=== PATIENT | male | born 1935 | race Caucasian/White ===

== ENCOUNTER 2018-02-19 11:18 | Outpatient (CLI) | payer MEDICARE ==
--- NOTE | 2018-02-19 13:14 | RAD ---
PA AND LATEARL CHEST: History: Paroxysymal atrial fibrillation FINDINGS: The heart size is normal. There is elevation of the right hemidiaphragm. No lobar consolidation, pneu mothoraces, gerardo pulmonary edema or pleural effusions are seen. There are mild degenerative changes of the spine. IMPRESSION: No radiographic evidence of acute cardiopulmonary process. POS: [facility]
== END 2018-02-19 11:19 | disposition home or self-care (01) ==
LOC: BICRAD 11:18
PROVIDERS: ATTEND Internal Medicine Cardiovascular Disease
DX: I48.0 Paroxysmal atrial fibrillation (principal)
CPT/HCPCS: 71046

== ENCOUNTER 2018-02-19 11:25 | Outpatient (CLI) | payer MEDICARE ==
--- NOTE | 2018-02-19 13:44 | RAD ---
CERVICAL SPINE 4 VIEWS: Date: 02/19/18 HISTORY: Spondylosis without myelopathy or radiculopathy, cervical. FINDINGS: There are postop changes of anterior spinal fusion with plate and screws at C5-6 level in good positi on and alignment. Degenerative changes are present. No fracture or subluxation is seen. No change in alignment is noted on flexion or extension. POS: [facility]
--- NOTE | 2018-02-19 13:44 | RAD ---
FOUR VIEWS LUMBAR SPINE: Date: 02-19-18 History: Lumbar spondylosis with myelopathy or radicular symptoms. Comparison: None available. FINDINGS: There are five non-rib bearing lumbar type vertebral bodies. Laminectomy defects are seen posteriorly extending from the level of the L3 vertebral body to the lumbosacral junction. Scattered osteophytes are present within the lumbar spine. There is slight retrolisthesis of L3 on L4 with similar degree of retrolisthesis on flexion and extension views. No additional level of subluxation is present. Ther e is narrowing at the intervertebral disc spaces at the lower lumbar spine. Vertebral body heights ar e within normal limits and there is no fracture. There is mild right convex curvature of the lumbar s pine. Vascular calcification is seen in the abdominal aorta. IMPRESSION: 1. Degenerative and post-operative changes of the lumbar spine with right convex scoliosis. 2. Slight retrolisthesis of L3 on L4. POS: [facility]
== END 2018-02-19 11:26 | disposition home or self-care (01) ==
LOC: BICRAD 11:25
PROVIDERS: ATTEND Nurse Practitioner Family
DX: M47.816 Spondylosis without myelopathy or radiculopathy, lumbar region (principal); M47.812 Spondylosis without myelopathy or radiculopathy, cervical region; M47.892 Other spondylosis, cervical region; M47.896 Other spondylosis, lumbar region; M41.9 Scoliosis, unspecified; M43.16 Spondylolisthesis, lumbar region; Z98.890 Other specified postprocedural states
CPT/HCPCS: 71046; 72050; 72110

== ENCOUNTER 2018-03-11 11:17 | Day surgery (SDC) | payer MEDICARE ==
[2018-03-11] MEDS ORDERED: PROPOFOL 200 MG/20 ML VIAL ONE (17:16)
--- NOTE | 2018-03-11 18:04 | MRI ---
MRI CERVICAL SPINE WITHOUT CONTRAST: Date: 03/11/18 HISTORY: M53.02, cervical spondylosis. COMPARISON: Cervical spine radiographs dated 02/19/18. FINDINGS: The cerebellar tonsils terminate at the level of the foramen magnum. Background marrow signal is norm al. There is some mild susceptibility artifact at the ACDF hardware at C4-5. No marrow infiltrative process. Signal of the cord is normal. Levels are as follows: C2-3: Some low grade disc desiccation. Moderate left and mild right-sided facet arthropathy. There i s a small right paracentral posterior disc osteophyte complex. Mild right and no significant left-radha ed neural foraminal narrowing. C3-4: Mild uncinate process hypertrophy, slightly worse on the right than the left. Mild to moderate facet arthropathy bilaterally. Uncinate process hypertrophy on the right with moderate right-sided n eural foraminal narrowing. C4-5: Mild disc desiccation. There is a right subforaminal and extraforaminal posterior disc osteoph yte complex. Mild facet arthropathy. There is effacement of the ventral CSF space of the spinal canal measuring approximately 1.0 cm. There is abutment of the ventral cord. Moderate to severe right-side d neural foraminal narrowing with abutment of the exiting nerve root. Mild left side neural foraminal narrowing. C5-6: Prior diskectomy changes. There is a right paracentral and subforaminal posterior osteophyte c ausing moderate to severe right-sided neural foraminal narrowing. Mild left-sided uncinate process hy pertrophy. No significant spinal canal narrowing. C6-7: There is central, left paracentral, and left subforaminal posterior disc osteophyte complex. T his causes moderate to severe left-sided neural foraminal narrowing. Mild uncinate process hypertroph y on the right causing mild right-sided neural foraminal narrowing. There is abutment of the left exi ting nerve root. IMPRESSION: Multilevel spondylosis, worse at C4-5, C5-6, and C6-7. At C5-6, there appears to be a large right sub foraminal and lateral recess osteophyte. POS: [facility]
--- NOTE | 2018-03-11 18:38 | MRI ---
MRI LUMBAR SPINE WITHOUT CONTRAST: Date: 03/11/18 HISTORY: M54.16, lumbar radicular pain. Buttock pain extending to legs bilaterally. COMPARISON: None. FINDINGS: Multiple T2 hyperintense foci are present within both kidneys. The visualized portion of the aorta is not dilated. No retroperitoneal adenopathy. No marrow infiltrative process. Laminectomy changes L3-L5. Levels are as follows: L1-2: Low grade circumferential disc bulge. Mild facet arthropathy. Mild bilateral neural foraminal narrowing. L2-3: Mild disc desiccation. Low grade circumferential disc bulge. Mild facet arthropathy. Mild to m oderate bilateral neural foraminal narrowing. L3-4: Moderate degenerative disc space disease. 1.0 mm retrolisthesis. Superimposed central annular fissure. Moderate to severe facet arthropathy. No significant neural foraminal narrowing. Laminectomy changes. No significant spinal canal narrowing. Severe neural foraminal narrowing bilaterally with a butment of the exiting and traversing nerve root. L4-5: Circumferential disc bulge. Superimposed central annular fissure. Moderate to severe facet art hropathy. No significant spinal canal narrowing. Severe neural foraminal narrowing bilaterally with a butment of the exiting and traversing nerve roots. L5-S1: Mild disc desiccation. Circumferential disc osteophyte complex. Moderate facet arthropathy. M oderate to severe right and severe left-sided neural foraminal narrowing with abutment of the exiting and traversing nerve roots bilaterally. IMPRESSION: Multilevel neural foraminal narrowing from L3-S1 with abutment of the exiting and traversing nerve ro ots bilaterally at these levels. POS: [facility]
== END 2018-03-11 15:50 | disposition home or self-care (01) ==
LOC: SDC/OP 11:17
PROVIDERS: ATTEND Nurse Practitioner Family
DX: M43.02 Spondylolysis, cervical region (principal); M51.16 Intervertebral disc disorders with radiculopathy, lumbar region; M48.061 Spinal stenosis, lumbar region without neurogenic claudication; M96.1 Postlaminectomy syndrome, not elsewhere classified; Z87.891 Personal history of nicotine dependence; Z79.01 Long term (current) use of anticoagulants; Z79.899 Other long term (current) drug therapy; Z98.1 Arthrodesis status
CPT/HCPCS: 72141; 72148; J2704

== ENCOUNTER 2018-05-22 15:21 | Outpatient (CLI) | payer MEDICARE ==
--- NOTE | 2018-05-22 16:21 | RAD ---
LUMBAR SPINE SERIES THREE VIEWS INCLUDING FLEXION AND EXTENSION: 05/22/18 HISTORY: The bones are demineralized. The vertebral bodies appear normal in height. there is marked degenerati ve changes. Disc narrowing at L3-4 and L5-S1. Less pronounced disc narrowing at L4-5. There is a retr olisthesis of L3 on L4. There are postoperative laminectomy changes seen at L3, L4 and also L5. The r etrolisthesis of L3 on L4 is fairly similar between the very limited flexion and extension views and appears to reduce slightly in extension. IMPRESSION: Postoperative changes of the spine and severe arthritic changes. Retrolisthesis of L3 on L4 appears t o reduce slightly in extension. POS: [facility]
== END 2018-05-22 15:22 | disposition home or self-care (01) ==
LOC: TBSIIMAG 15:21
PROVIDERS: ATTEND Neurological Surgery
DX: M54.5 Low back pain (principal); M43.16 Spondylolisthesis, lumbar region; M46.96 Unspecified inflammatory spondylopathy, lumbar region; Z98.890 Other specified postprocedural states
CPT/HCPCS: 72100

== ENCOUNTER 2018-07-25 00:44 | Outpatient (CLI) | payer MEDICARE ==
[2018-07-25 14:36] LABS: #Eosinphils 0.2 thou/uL (0.0-0.7); #Lymphocytes 0.9 thou/uL (1.20-3.40); #Monocytes 0.6 thou/uL (0.11-0.59); #Neutrophils 3.5 thou/uL (1.40-6.50); %Basophils 0.9 % (0.0-1.0); %Eosinophils 4.1 % (0.0-10.0); %Lymphocytes 17.8 % (21.0-51.0); %Monocytes 10.9 % (0.0-10.0); %Neutrophils 66.4 % (42.0-75.0); Hemoglobin 13.2 g/dL (14.0-18.0); Mean Corpuscular Hemoglobin 32.5 pg (27.0-31.0); Mean Corpuscular Volume 98.6 fL (78.0-98.0); Mean Platelet Volume 7.9 fL (7.4-10.4); Platelet Count 166 thou/uL (130-400); RBC Distribution Width 11.4 % (11.5-14.5); Red Blood Cell (RBC) Count 4.06 mill/uL (4.70-6.10); White Blood Cell (WBC) Count 5.2 thou/uL (4.8-10.8)
[2018-07-25 14:56] LABS: Anion Gap 10 mmol/L (10-20); BUN (Urea Nitrogen) 24 mg/dL (8.4-25.7); Calc. Creatinine Clearance 0 mL/min (70-130); Calcium 9.3 mg/dL (7.8-10.44); Carbon Dioxide 29 mmol/L (23-31); Chloride 107 mmol/L (98-107); Estimated GFR-MDRD 50; Glucose 80 mg/dL (83-110); Potassium 4.3 mmol/L (3.5-5.1); Sodium 142 mmol/L (136-145)
--- NOTE | 2018-07-28 22:36 | EKG ---
Test Reason : Blood Pressure : / mmHG Vent. Rate : 066 BPM Atrial Rate : 066 BPM P-R Int : 214 ms QRS Dur : 094 ms QT Int : 446 ms P-R-T Axes : 057 016 041 degrees QTc Int : 467 ms Sinus rhythm with 1st degree A-V block Cannot rule out Anterior infarct , age undetermined Abnormal ECG No previous ECGs available Confirmed by Ursula MARINELLI ([id number]) on 07/28/2018 10:36:35 PM Referred By: VISHNU Confirmed By:Ursula MARINELLI
== END 2018-07-25 00:45 | disposition home or self-care (01) ==
LOC: LABBT 00:44
PROVIDERS: ATTEND Neurological Surgery
DX: Z01.818 Encounter for other preprocedural examination (principal); M54.16 Radiculopathy, lumbar region
CPT/HCPCS: 80048; 85025; 93005; 93010

== ENCOUNTER 2018-07-28 08:33 | Day surgery (SDC) | payer MEDICARE ==
[2018-07-25 13:37] VITALS: BMI 29.5
--- NOTE | 2018-07-28 07:10 | HP ---
HISTORY OF PRESENT ILLNESS: Mr. Tate is a very pleasant 82-year-old man, here for evaluation of significant lower back pain as well as right lateral hip and thigh pain that bothers him mostly with activity. He has treated this with repeated injections both in the spine and in the greater trochanteric bursa there on the right side with only very limited result, utmost maybe for a day. He has exhausted physical therapy, medications, and all other routes of treatment feasible for this particular pain and he has found no relief and hopes to move forward with some other option. He brings an MRI from [place] that does reveal severe foraminal stenosis to the right at L3 and L4, which could potentially maximize the symptoms that he has. PAST MEDICAL HISTORY: Significant for gastroesophageal reflux disease, cardiac arrhythmia, coronary artery disease, chronic pain syndrome, hyperlipidemia, hypertension, and BPH. CURRENT MEDICATIONS: 1. Tadalafil. 2. Gabapentin. 3. Tamsulosin. 4. Losartan. 5. Atorvastatin. 6. Tizanidine. 7. Eliquis. 8. Amiodarone. 9. Esomeprazole. ALLERGIES: 1. ULTRAM. 2. SULFA. 3. PENICILLIN. PAST SURGICAL HISTORY: Rotator cuff surgery, bilateral; lumbar laminectomy; unspecified retina surgery; cataract surgery in the right eye; anterior cervical diskectomy and fusion; and cataract surgery in the left eye. PHYSICAL EXAMINATION: The patient's gait is mildly antalgic. Lower extremity motor exam is normal. He does have mild tenderness over the right greater trochanteric bursa. Strength is 5/5 in all muscle groups of the bilateral lower extremities. Reflexes are equal and present bilaterally at the patella and Achilles. ASSESSMENT: Lumbar radiculopathy. PLAN: Dr. Tate met with the patient, reviewed imaging, and advocated for a right L3 and L4 foraminotomy. He explained to the patient the risks, benefits, and alternatives to the procedure. The patient expressed understanding and elected to move forward with surgery as discussed. I do believe that the patient is mentally competent and capable of making medical decisions for himself. We will move forward with surgery as planned. Job ID: [id number]
[2018-07-28] MEDS ORDERED: Fentanyl 100 MCG/2 ML VIAL ONE ×5 (09:24→12:43)
[2018-07-28] MEDS ORDERED: Bupivacaine/Epinephrine 0.25% 30 ML VIAL ONE (09:25)
[2018-07-28] MEDS ORDERED: Thrombin 5000 UNITS/5 ML VIAL ONE (09:26)
[2018-07-28] MEDS ORDERED: Levofloxacin 500 mg/D5W 100 ml Premix Bag ONE (09:40)
[2018-07-28] MEDS ORDERED: Clindamycin/D5W 900 mg/50 ml Premix Bag ONE ×2 (09:40→16:04)
[2018-07-28] MEDS ORDERED: PHENYLEPHRINE-NS 100 MCG/ML 10 ML SYRINGE ONE (10:25)
[2018-07-28] MEDS ORDERED: Phenylephrine HCL 10 MG/ML VIAL ONE (10:42)
[2018-07-28] MEDS ORDERED: Tamsulosin HCl 0.4 MG CAP ONE (12:10)
[2018-07-28] MEDS ORDERED: Morphine 2 MG/ML SYRINGE ONE ×2 (12:21→16:04)
[2018-07-28] MEDS ORDERED: Morphine 4 MG/ML VIAL ONE (12:34)
[2018-07-28] MEDS ORDERED: Acetaminophen/Codeine 30-300mg Tablet ONE (13:46)
[2018-07-28] MEDS ORDERED: HYDROcodone/Acetaminophen 5/325 mg Tablet ONE (16:21)
--- NOTE | 2018-07-28 18:03 | OP ---
DATE OF PROCEDURE: 07/28/2018 [employer] MACHINE OPERATOR: Víctor Ferris PA-C. INDICATION: Pain. DIAGNOSIS: Lumbar radiculopathy. PROCEDURES PERFORMED: Reoperation right L3-L4 decompression, right L3 foraminotomy, right L4 medial facetectomy and foraminotomy. ANESTHESIA: General. DESCRIPTION OF PROCEDURE: The patient was brought into the operating room and placed under general anesthesia. He was flipped from the supine to prone position on the operating room table. His old linear incision was identified and prepped and draped in the usual sterile fashion. Following appropriate preoperative pause, the incision was created. The soft tissues were swept right of midline. A self-retaining retractor was placed in the wound for optimal exposure. After dissecting through a substantial amount of scar, I identified bone defects along the lateral margins of the lamina at L3 and L4. Several intraoperative x-rays were obtained to confirm appropriate levels. High-speed cutting drill bit as well as 2, 3, and 4 mm Kerrisons were used to perform facetectomy at L3-L4, then encompassed the medial half of the facet joint. I performed a more extensive foraminotomy over the exiting L3 nerve root. At L4, I followed the L4 nerve root out the foramina ensure it was well decompressed. On dissecting through scar, which was densely adherent to the dura, there was a spinal fluid leak, which was anticipated given the nature of the operation. This was not a clear defect within the dura, but weeping type of spinal fluid leak. As such, it could not be primarily repaired. DuraSeal as well as Gel-Foam were placed after which time appeared to be no more additional leaking. The wound was then irrigated. Hemostasis was maintained throughout. The wound was then closed in anatomic layers, and a pressure dressing was applied. Job ID: [id number]
== END 2018-07-28 16:45 | disposition home or self-care (01) ==
LOC: SDC 08:33
PROVIDERS: ATTEND Neurological Surgery
PROC: 01NB0ZZ Release Lumbar Nerve, Open Approach (ICD-10-PCS; principal; 2018-07-28)
DX: M54.16 Radiculopathy, lumbar region (principal); M48.061 Spinal stenosis, lumbar region without neurogenic claudication; K21.9 Gastro-esophageal reflux disease without esophagitis; I25.10 Atherosclerotic heart disease of native coronary artery without angina pectoris; G89.4 Chronic pain syndrome; I10 Essential (primary) hypertension; E78.5 Hyperlipidemia, unspecified; N40.0 Benign prostatic hyperplasia without lower urinary tract symptoms; Z79.01 Long term (current) use of anticoagulants; Z79.899 Other long term (current) drug therapy; Z88.0 Allergy status to penicillin; Z88.2 Allergy status to sulfonamides; Z88.5 Allergy status to narcotic agent
CPT/HCPCS: 76000; J0690; J1956; J2270; J2370; J3010; J3490

== ENCOUNTER 2018-09-26 08:02 | Outpatient (CLI) | payer MEDICARE ==
--- NOTE | 2018-09-26 08:41 | CT ---
CT LUMBAR SPINE: 09/26/2018 COMPARISON: None. HISTORY: Increasing back pain, back surgery 2 months ago, radiculopathy. TECHNIQUE: Axial CT imaging at 2.5 mm intervals through the lumbar spine without contrast. Coronal and sagittal reformatted imaging obtained. FINDINGS: Evaluation for central canal and/or neural foraminal stenosis limited on routine CT examination. The re is scattered atherosclerotic calcification of the imaged abdominal aorta and its branches. There is a small, partially visualized, hypodense lesion emanating from the lower pole of the left ki dney, measuring in the 1.3 cm range, likely representing a small cyst. There is no significant anterolisthesis or retrolisthesis noted within the lumbar spine. Laminectomy changes are noted at L3, L4, and L5. T12-L1: No osseous cause of significant central canal or neural foraminal stenosis. L1-L2: Mild bilateral facet hypertrophy. Minimal disc bulge. Anterior osteophyte formation. No si gnificant central canal stenosis. Probable mild bilateral neural foraminal stenosis. L2-L3: Bilateral facet hypertrophy and hypertrophy of the ligamentum flavum. No osseous cause of si gnificant central canal or neural foraminal stenosis. L3-L4: There is a suggestion of a mild disc bulge. Bilateral facet hypertrophy is present. There i s probable moderate bilateral neural foraminal stenosis, right greater than left. No osseous cause of significant central canal stenosis. L4-L5: There is disc space narrowing, anterior osteophyte formation, vacuum disc formation, and dege nerative endplate change. There is disc bulge causing mild-moderate central canal stenosis. There is moderate left and severe right neural foraminal stenosis. L5-S1: There is disc space narrowing and vacuum disc formation with degenerative endplate change. T here is bilateral facet hypertrophy. No significant central canal stenosis. There is severe left and mild/moderate right neural foraminal stenosis. There are no worrisome lytic or blastic bone lesions. IMPRESSION: Multilevel degenerative change noted within the lumbar spine, as well as postoperative change. There are areas of central canal and neural foraminal stenosis as detailed above. If further imaging assessment is clinically warranted, CT myelogram of the lumbar spine may be beneficial. Transcribed Date/Time: 09/26/2018 8:59 AM
== END 2018-09-26 08:03 | disposition home or self-care (01) ==
LOC: CT 08:02
PROVIDERS: ATTEND Neurological Surgery
DX: M47.816 Spondylosis without myelopathy or radiculopathy, lumbar region (principal); M48.061 Spinal stenosis, lumbar region without neurogenic claudication; Z98.890 Other specified postprocedural states
CPT/HCPCS: 72131

== ENCOUNTER 2018-09-30 13:25 | Outpatient (CLI) | payer MEDICARE ==
--- NOTE | 2018-09-30 13:48 | RAD ---
XR Hip Rt 2-3 View HISTORY: Right hip pain FINDINGS: No fracture or dislocation is identified. There are degenerative changes in the right hip joint
== END 2018-09-30 13:26 | disposition home or self-care (01) ==
LOC: RAD 13:25
PROVIDERS: ATTEND Neurological Surgery
DX: M25.551 Pain in right hip (principal)

== ENCOUNTER 2018-10-08 15:37 | Outpatient (CLI) | payer MEDICARE ==
--- NOTE | 2018-10-08 16:01 | RAD ---
LEFT HIP TWO VIEWS: 10/08/18 HISTORY: Preoperative evaluation. Trochanter bursitis of the left hip. FINDINGS/IMPRESSION: Mild degenerative changes are present. No fracture, dislocation or bony destruction is identified. POS: [facility]
== END 2018-10-08 15:38 | disposition home or self-care (01) ==
LOC: RAD 15:37
PROVIDERS: ATTEND Neurological Surgery
DX: M70.62 Trochanteric bursitis, left hip (principal); M16.12 Unilateral primary osteoarthritis, left hip
CPT/HCPCS: 71046

== ENCOUNTER 2018-12-01 10:15 | Day surgery (SDC) | payer MEDICARE ==
[2018-11-28 13:09] VITALS: BMI 29.9
--- NOTE | 2018-12-01 15:54 | MRI ---
MRI RIGHT HIP WITHOUT CONTRAST: HISTORY: Pain. COMPARISON: 09/30/2018 FINDINGS: Bones: There are moderate bilateral acetabular osteophytes. No stress edema. No fracture. No jose lignment. No SI joint edema. Labrum: There is a tear throughout the substance of the anterior-superior right labrum. Cartilage: High-grade chondral fissuring and fraying of the central and lateral acetabulum, adjacent anterior femoral head. There is also chondral loss of the anterior acetabulum, approximately 50%-60 %. Tendons: The iliopsoas tendon on the right is intact. There is a moderate tendinosis of the bifid i liopsoas tendon without a full-thickness tear. There is a left iliopsoas bursal effusion, incomplete ly evaluated on this exam. There is high-grade undersurface partial tearing of both common hamstring and semimembranosus tendons without fullness rupture. Intrapelvic soft tissues: There is some small volume free fluid in the pelvis. The prostate is enla rged. IMPRESSION: 1. Intrasubstance tearing throughout the anterior and superior labrum. 2. Approximately 50% cartilage narrowing of the anterior-superior femoral head and acetabulum. 3. High-grade undersurface partial tearing of both the semimembranosus and common hamstring tendons. 4. Likely a left iliopsoas bursa effusion containing debris and synovitis, although incompletely kathy luated on this right hip MRI. 5. Some loss of normal sphericity of the right femoral head and neck junction, a cam-type deformity. 6. A few free bodies within the right hip joint, likely cartilaginous in nature. 7. Moderate tendinosis of the bifid right iliopsoas tendon without a full-thickness tear. POS: [facility]
== END 2018-12-01 14:45 | disposition home or self-care (01) ==
LOC: MRI 10:15
PROVIDERS: ATTEND Neurological Surgery
DX: S73.101A Unspecified sprain of right hip, initial encounter (principal); S76.311A Strain of muscle, fascia and tendon of the posterior muscle group at thigh level, right thigh, initial encounter; M76.11 Psoas tendinitis, right hip; M94.8X8 Other specified disorders of cartilage, other site; Z88.0 Allergy status to penicillin; Z88.2 Allergy status to sulfonamides; Z88.5 Allergy status to narcotic agent; Z79.01 Long term (current) use of anticoagulants; Z79.899 Other long term (current) drug therapy

== ENCOUNTER 2019-01-16 06:37 | Outpatient (CLI) | payer MEDICARE ==
[2019-01-16 10:27] LABS: Hemoglobin 14.4 g/dL (14.0-18.0); Mean Corpuscular HGB CONC 32.2 g/dL (32.0-36.0); Mean Corpuscular Hemoglobin 31.1 pg (27.0-31.0); Mean Corpuscular Volume 96.6 fL (78.0-98.0); Mean Platelet Volume 8.1 fL (7.4-10.4); Platelet Count 193 thou/uL (130-400); RBC Distribution Width 12.2 % (11.5-14.5); Red Blood Cell (RBC) Count 4.61 mill/uL (4.70-6.10); White Blood Cell (WBC) Count 8.1 thou/uL (4.8-10.8)
[2019-01-16 10:34] LABS: INR-International Normal Ratio 1.2; PTT 28.5 SEC (22.9-36.1); Prothrombin Time 14.8 SEC (12.0-14.7)
[2019-01-16 10:42] LABS: Bacteria/HPF None Seen HPF (None Seen); Bilirubin Negative (Negative); Blood, Urine 1+ (Negative); Clarity Clear (Clear); Glucose, Urine (Dipstick) Normal (Negative); Leukocyte Negative Leu/uL (Negative); Nitrite Negative (Negative); Protein, Urine (Dipstick) Negative (Neg-Trace); Squamous Epithelial 0-3 HPF (0-3); Urobilinogen Normal mg/dL (Less than 2); WBC/HPF 0-3 HPF (0-3)
[2019-01-16 10:52] LABS: Anion Gap 16 mmol/L (10-20); BUN (Urea Nitrogen) 40 mg/dL (8.4-25.7); Calc. Creatinine Clearance 0 mL/min (70-130); Calcium 9.3 mg/dL (7.8-10.44); Carbon Dioxide 24 mmol/L (23-31); Chloride 106 mmol/L (98-107); Estimated GFR-MDRD 43; Glucose 94 mg/dL (83-110); Potassium 4.5 mmol/L (3.5-5.1); Sodium 141 mmol/L (136-145)
--- NOTE | 2019-01-16 18:51 | EKG ---
Test Reason : Blood Pressure : / mmHG Vent. Rate : 068 BPM Atrial Rate : 068 BPM P-R Int : 196 ms QRS Dur : 092 ms QT Int : 398 ms P-R-T Axes : 052 -01 038 degrees QTc Int : 423 ms Normal sinus rhythm Inferior infarct , age undetermined Abnormal ECG When compared with ECG of 25-JUL-2018 14:13, No significant change was found Confirmed by KRISTA HART, SMyrtle ([id number]) on 01/16/2019 6:51:04 PM Referred By: GABRIELA Confirmed By:DR. Ganesh VELASCO MD
== END 2019-01-16 06:38 | disposition home or self-care (01) ==
LOC: LABBT 06:37
PROVIDERS: ATTEND Urology
DX: Z01.818 Encounter for other preprocedural examination (principal); N40.0 Benign prostatic hyperplasia without lower urinary tract symptoms; N52.8 Other male erectile dysfunction
CPT/HCPCS: 80048; 81001; 85027; 85610; 85730; 87086; 93005; 93010

== ENCOUNTER 2019-01-23 06:13 | Day surgery (SDC) | payer MEDICARE ==
[2019-01-16 08:59] VITALS: BMI 29.9
[2019-01-23] MEDS ORDERED: Levofloxacin 500 mg/D5W 100 ml Premix Bag ONE (06:30)
[2019-01-23] MEDS ORDERED: Midazolam HCl 2 mg/2 ml Vial ONE (07:40)
[2019-01-23] MEDS ORDERED: Fentanyl 100 MCG/2 ML VIAL ONE (07:40)
[2019-01-23] MEDS ORDERED: Morphine 2 MG/ML SYRINGE ONE (09:23)
[2019-01-23] MEDS ORDERED: HYDROcodone/Acetaminophen 5/325 mg Tablet ONE (10:08)
--- NOTE | 2019-01-23 10:10 | OP ---
DATE OF PROCEDURE: 01/23/2019 SERVICE: Urology. PREOPERATIVE DIAGNOSIS: Benign prostatic hyperplasia. POSTOPERATIVE DIAGNOSIS: Benign prostatic hyperplasia. PROCEDURE PERFORMED: UroLift with 5 implants. INDICATIONS FOR PROCEDURE: Mr. Tate is an 83-year-old white male, who has BPH and urinary complaints including both irritative and obstructive symptoms. He wished to undergo UroLift to get off his Flomax and potentially alleviate the overactive bladder, although this may have to be treated separately. All risks and benefits have been discussed and he has agreed to proceed forward. DESCRIPTION OF PROCEDURE: After identification of armband and verification of consent, the patient was brought back to the operating room, where he underwent total intravenous anesthesia and was placed in the dorsal lithotomy position and prepped and draped in usual sterile fashion. A rigid 21-S[place] Arabian rigid cystoscope was introduced per urethra into the bladder. After appropriate time-out, it was showing a normal urethra and obstructive prostate with a small median lobe. Attention was turned towards the lateral lobes, which did demonstrate significant obstruction. The visual obturator was switched out for the UroLift implantation device and the first implant was placed on the patient's left towards the bladder neck. The device was positioned approximately 2 cm proximal to the bladder neck and then compressed approximately 20 to 25 degrees inwards and upwards for anterior lift and lateral compression. The safety was released, then blue trigger fired to deploy the needle and the alan trigger squeezed to advance the Nitinol tab into location outside of the prostate. The UroLift was then advanced forward until the white line could be seen in the keyhole and then the release for the steel tab deployed, which resulted nice compression of the proximal aspect of the patient's left prostate. The same was done on the patient's right side towards the bladder neck and two other additional at the verumontanum on each side. This resulted in a nice opening of the entire anterior channel of the prostate. There was still a little bulge of the median lobe. The median lobe was pulled back with the 5th implant and then compressed significantly to angle the device somewhat minimally posteriorly and mostly laterally. We came back far enough to ensure that the needle would not fire into the bladder and the needle was deployed. Advancement was gone forward until the white line could be seen, but this was too close to the bladder neck, so we reversed the device back into the prostate until it was far enough away from the bladder neck and then fired the release for the steel tab, which did deploy into the prostate. This resulted in very nice compression of the median lobe and a completely wide open bladder neck and anterior channel. Upon completion, bleeding was noted to be relatively minimal. The UroLift device and sheath were all removed today. An 18-S[place] Arabian Burris catheter was placed into the patient's bladder with 10 mL of sterile water placed into the balloon and it was hooked up to gravity drainage. He was then awakened and taken to Day Stay for recovery in stable condition. COMPLICATIONS: None. ESTIMATED BLOOD LOSS: Minimal. RETAINED TUBES AND DRAINS: An 18-S[place] Arabian Burris catheter. SPECIMENS: None. IMPLANTS USED: Five. DISPOSITION: The patient will undergo a potential void trial and if successful, he will be discharged home without a catheter and can follow up with me on an outpatient basis. Job ID: [id number]
[2019-01-23] MEDS ORDERED: Oxybutynin 5 MG TAB ONE (10:44)
[2019-01-23] MEDS ORDERED: Phenazopyridine HCl 97.5 MG TABLET ONE (10:44)
[2019-01-23] MEDS ORDERED: Ondansetron ODT 4 MG TAB ONE (11:51)
== END 2019-01-23 12:45 | disposition home or self-care (01) ==
LOC: SDC 06:13
PROVIDERS: ATTEND Urology
PROC: 0T7D8DZ Dilation of Urethra with Intraluminal Device, Via Natural or Artificial Opening Endoscopic (ICD-10-PCS; principal; 2019-01-23)
DX: N40.1 Benign prostatic hyperplasia with lower urinary tract symptoms (principal); N13.8 Other obstructive and reflux uropathy; Z79.01 Long term (current) use of anticoagulants; Z79.899 Other long term (current) drug therapy; Z88.0 Allergy status to penicillin; Z88.2 Allergy status to sulfonamides; Z88.5 Allergy status to narcotic agent
CPT/HCPCS: J1956; J2250; J2270; J3010; Q0162

== ENCOUNTER 2019-04-20 13:23 | Outpatient (CLI) | payer MEDICARE ==
--- NOTE | 2019-04-20 14:35 | CT ---
CT chest with IV contrast HISTORY: Aneurysm. FINDINGS: Mild dependent atelectasis at each lung base. No focal mass. No pleural fluid or pneumothor ax. Calcification within the arterial structures. Bovine origin of the great vessels at the aortic arch. The ascending aorta measures up to 5.0 cm AP diameter. The upper descending thoracic aorta is 2.8 cm AP diameter. Lower thoracic aorta 2.8 cm. Within the partially visualized upper abdomen, cysts arise from the cortex of each kidney. IMPRESSION: Ascending aortic dilatation, 5.0 cm. Atherosclerosis.
[2019-04-20] MEDS ORDERED: Iopamidol 370 76% 100 ML VIAL ONE (16:04)
== END 2019-04-20 13:24 | disposition home or self-care (01) ==
LOC: BICCT 13:23
PROVIDERS: ATTEND Internal Medicine Cardiovascular Disease
DX: I71.2 Thoracic aortic aneurysm, without rupture (principal); I77.819 Aortic ectasia, unspecified site; I70.0 Atherosclerosis of aorta
CPT/HCPCS: 71260

== ENCOUNTER 2019-09-23 15:31 | Outpatient (CLI) | payer MEDICARE ==
--- NOTE | 2019-09-23 15:56 | RAD ---
Abdomen 2 views HISTORY: Abdomen pain. Chronic constipation. FINDINGS: Nondilated colon contains gas. No differential air-fluid levels or evidence of free subdiap hragmatic gas. Rightward convex curvature of the lumbar spine with degenerative and postoperative changes. No abnorm al abdominal calcifications are apparent aside from vascular calcifications at also overlie each groin. Hemostasis clips overlie the prostate bed. IMPRESSION : No bowel abnormalities are evident. Atherosclerosis. Postoperative changes lumbar spine and prostate bed.
== END 2019-09-23 15:32 | disposition home or self-care (01) ==
LOC: BICRAD 15:31
PROVIDERS: ATTEND Internal Medicine Gastroenterology
DX: K59.09 Other constipation (principal); M54.5 Low back pain; I71.9 Aortic aneurysm of unspecified site, without rupture; I70.90 Unspecified atherosclerosis; Z98.890 Other specified postprocedural states
CPT/HCPCS: 74019

== ENCOUNTER 2019-10-06 11:17 | Outpatient (CLI) | payer MEDICARE, OTHER ==
[2019-10-07 13:57] LABS: SARS-CoV-2 MS2 Positive; SARS-CoV-2 N Gene Negative; SARS-CoV-2 S Gene Negative; SARS-CoV-2 orf1ab Negative
== END 2019-10-06 11:18 | disposition home or self-care (01) ==
LOC: LABBT 11:17
PROVIDERS: ATTEND Neurological Surgery
DX: Z01.812 Encounter for preprocedural laboratory examination (principal); Z11.59 Encounter for screening for other viral diseases; M54.5 Low back pain
CPT/HCPCS: 87635; U0003

== ENCOUNTER 2019-10-09 12:08 | Day surgery (SDC) | payer MEDICARE ==
[2019-10-08 10:36] VITALS: BMI 29.2
[~2019-10-09 12:08] MED LIST: EPHEDRINE 25 MG/5 ML SYRINGE ONE; Lidocaine 1% PF 5 ML VIAL ONE; Magnevist 469MG/ML 20 ML VIAL ONE; Ondansetron PF 4 MG/2 ML Vial ONE; PROPOFOL 200 MG/20 ML VIAL ONE
[2019-10-09] MEDS ORDERED: Fentanyl 100 MCG/2 ML VIAL ONE (13:36)
--- NOTE | 2019-10-09 14:48 | MRI ---
Exam: MRI lumbar spine with and without contrast HISTORY: Low back pain. Previous surgery. COMPARISON: 03/11/2018 Correlation: Lumbar spine CT 09/26/2018 FINDINGS: Appropriate T1 marrow signal intensity of the lumbar vertebra. Lumbar spine vertebral body heights are maintained. No fracture. Minimal type I Modic changes at the L4-L5 disc space. No significant STIR hyperintensity to suggest vertebral body edema or ligamentous injury Appropriate signal intensity of the visualized paraspinal muscles. Bilateral renal cortical cysts. Conus medullaris terminates at the upper aspect of L1 Spondylolisthesis: 2.8 mm of retrolisthesis of L3 upon L4 3.3 mm of retrolisthesis of L5 upon S1 Postcontrast images do not demonstrate any abnormal enhancement within the thecal sac including the c onus medullaris and cauda equina. No abnormal enhancement of the vertebral bodies. T12-L1: Adequate disc hydration. No significant central canal stenosis or significant neural foramina l narrowing L1-L2: Adequate disc hydration. No significant central canal stenosis or significant neural foraminal narrowing L2-L3: Desiccation with mild loss of disc space height. Broad-based disc bulge, ligament flavum thick ening and facet hypertrophy result in mild central canal stenosis. Right neural foramen is patent. Mild left neural foraminal narrowing L3-L4: Desiccation with mild loss of disc space height. Posterior laminectomy defect. Minimal enhanci ng scar tissue at the laminectomy defect site. No significant central canal stenosis. Moderate bilateral neural foraminal narrowing L4-L5: Desiccation with mild loss of disc space height. Broad-based disc bulge abuts the thecal sac. Encroachment upon bilateral subarticular zones. Disc material. Partial obscuration bilateral traversing L5 nerve roots. Posterior laminectomy defect with enhancing scar tissue at the operative s ite. Overall there is mild stenosis of the thecal sac. Severe right and moderate to severe left foraminal narrowing due to disc material and facet hypertrophy. Trace amount of fluid in both facet j oints L5-S1: Desiccation with severe loss of disc space height. Broad-based disc bulge abuts the thecal sac . Posterior laminectomy defect. Minimal enhancing scar tissue at the laminectomy defects height. No significant central canal stenosis. Moderate to severe bilateral neural foraminal narrowing IMPRESSION: Degenerative changes and postoperative changes of the lumbar spine as described above. Th e degree of foraminal stenosis at L4-L5 has not significantly changed. Transcribed Date/Time: 10/09/2019 3:21 PM
== END 2019-10-09 15:55 | disposition home or self-care (01) ==
LOC: SDC/OP 12:08 → EDSTATUS 14:00 → SDC/OP 15:55
PROVIDERS: ATTEND Neurological Surgery
DX: M48.061 Spinal stenosis, lumbar region without neurogenic claudication (principal); M54.5 Low back pain; Z79.01 Long term (current) use of anticoagulants; Z79.899 Other long term (current) drug therapy; Z88.0 Allergy status to penicillin; Z88.2 Allergy status to sulfonamides; Z88.5 Allergy status to narcotic agent; Z98.890 Other specified postprocedural states
CPT/HCPCS: 36415; 72158; 82565; A9579; J2001; J2405; J2704; J3010

== ENCOUNTER 2019-10-22 11:06 | Outpatient (CLI) | payer MEDICARE ==
--- NOTE | 2019-10-22 13:30 | CT ---
CT LUMBAR SPINE WITHOUT CONTRAST: Date: 10/22/2019 INDICATION: Lumbar radiculopathy. Comparison made to CT lumbar spine dated 09/26/2018. FINDINGS: Lumbar vertebra continue to maintain height. Prominent degenerative disc changes are again noted at L 4-5 and L5-S1. There is loss of disc space at both of these levels with vacuum phenomenon again seen. Findings at each disc level are described: L1-2: Mild disc bulge flattens the thecal sac. Facet and ligamentous hypertrophy. Mild central canal stenosis. L2-3: Mild disc bulge. Mild facet hypertrophy. Mild central canal stenosis. Unchanged from prior exa m. L3-4: Posterior laminectomy change. Mild diffuse disc bulge. This diffuse disc bulge extends lateral ly on both sides. It has foraminal extension on the right with asymmetric bulge/protrusion to the rig ht. It flattens the anterior thecal sac, more severely on the right, and encroaches into the right fo ramina. Mild to moderate central canal stenosis which appears similar to the prior exam. L4-5: Degenerative disc changes. Broad based disc bulge. Disc bulge extends laterally on both sides, more pronounced to the right, with right foraminal encroachment. Posterior laminectomy change. Facet hypertrophy. Mild to moderate central canal stenosis. Bilateral foraminal stenosis due to diffuse di sc bulge and facet hypertrophy. Similar to the prior study. L5-S1: Degenerative disc changes as noted above with loss of disc space. Mild disc bulge. Posterior laminectomy change. No significant central canal stenosis. Bilateral foraminal stenosis. IMPRESSION: Degenerative and postoperative changes of the lumbar spine again noted. Central canal and foraminal s tenosis at several levels as described above. POS: MARIA LUISA
== END 2019-10-22 11:07 | disposition home or self-care (01) ==
LOC: TBSIIMAG 11:06
PROVIDERS: ATTEND Neurological Surgery
DX: M47.26 Other spondylosis with radiculopathy, lumbar region (principal); M48.061 Spinal stenosis, lumbar region without neurogenic claudication; M48.07 Spinal stenosis, lumbosacral region
CPT/HCPCS: 72131

== ENCOUNTER 2019-12-28 06:07 | Outpatient (CLI) | payer MEDICARE, OTHER ==
[2019-12-28 14:13] LABS: INR-International Normal Ratio 1.4; Prothrombin Time 16.7 sec (12.0-14.7)
[2019-12-28 14:14] LABS: PTT 31.5 sec (22.9-36.1)
[2019-12-28 14:18] LABS: Hemoglobin 13.1 g/dL (14.0-18.0); Mean Corpuscular HGB CONC 31.8 g/dL (32.0-36.0); Mean Corpuscular Hemoglobin 31.5 pg (27.0-31.0); Mean Corpuscular Volume 99.2 fL (78.0-98.0); Mean Platelet Volume 8.4 fL (7.4-10.4); Platelet Count 160 thou/uL (130-400); RBC Distribution Width 12.4 % (11.5-14.5); Red Blood Cell (RBC) Count 4.15 mill/uL (4.70-6.10); White Blood Cell (WBC) Count 4.6 thou/uL (4.8-10.8)
[2019-12-28 14:45] LABS: Bacteria/HPF None Seen HPF (None Seen); Bilirubin Negative (Negative); Blood, Urine 2+ (Negative); Clarity Clear (Clear); Glucose, Urine (Dipstick) Normal (Negative); Ketone, Urine Negative (Negative); Leukocyte Negative Leu/uL (Negative); Nitrite Negative (Negative); Protein, Urine (Dipstick) Negative (Neg-Trace); Specific Gravity, Urine 1.023 (1.002-1.036); Squamous Epithelial None Seen HPF (0-3); Urobilinogen Normal mg/dL (Less than 2); WBC/HPF 0-3 HPF (0-3); pH, Urine 5.5 (5.0-9.0)
--- NOTE | 2019-12-28 14:49 | EKG ---
Test Reason : STEFANIE Blood Pressure : / mmHG Vent. Rate : 062 BPM Atrial Rate : 063 BPM P-R Int : 214 ms QRS Dur : 096 ms QT Int : 444 ms P-R-T Axes : 067 030 055 degrees QTc Int : 450 ms Sinus rhythm with 1st degree A-V block Otherwise normal ECG No previous ECGs available Confirmed by NEGRA PAPPAS M.D. ([id number]) on 12/28/2019 2:49:22 PM Referred By: GABRIELA Confirmed By:NEGRA PAPPAS M.D.
[2019-12-28 17:11] LABS: Anion Gap 13 mmol/L (10-20); BUN (Urea Nitrogen) 32 mg/dL (8.4-25.7); Calc. Creatinine Clearance 0 mL/min (70-130); Calcium 8.8 mg/dL (7.8-10.44); Carbon Dioxide 25 mmol/L (23-31); Chloride 108 mmol/L (98-107); Estimated GFR-MDRD 56; Glucose 103 mg/dL (83-110); Potassium 4.9 mmol/L (3.5-5.1); Sodium 141 mmol/L (136-145)
[2019-12-29 12:59] LABS: SARS-CoV-2 MS2 Positive; SARS-CoV-2 N Gene Negative; SARS-CoV-2 S Gene Negative; SARS-CoV-2 by NAA Not Detected (NotDetected); SARS-CoV-2 orf1ab Negative
== END 2019-12-28 06:08 | disposition home or self-care (01) ==
LOC: LABBT 06:07
PROVIDERS: ATTEND Urology
DX: Z01.818 Encounter for other preprocedural examination (principal); Z20.828 Contact with and (suspected) exposure to other viral communicable diseases; I10 Essential (primary) hypertension; E55.9 Vitamin D deficiency, unspecified; M16.11 Unilateral primary osteoarthritis, right hip; K21.9 Gastro-esophageal reflux disease without esophagitis; M54.17 Radiculopathy, lumbosacral region; Z68.30 Body mass index [BMI] 30.0-30.9, adult; I48.91 Unspecified atrial fibrillation; N40.0 Benign prostatic hyperplasia without lower urinary tract symptoms
CPT/HCPCS: 80048; 81001; 85027; 85610; 85730; 87086; 93005; U0003; 87635; 93010

== ENCOUNTER 2019-12-31 06:05 | Observation (INO) | payer MEDICARE ==
[2019-12-31] MEDS ORDERED: Levofloxacin 500 mg/D5W 100 ml Premix Bag ONE (06:21)
[2019-12-31] MEDS ORDERED: Fentanyl 100 MCG/2 ML VIAL ONE (07:00)
[2019-12-31] MEDS ORDERED: B & O ONE (07:16)
[2019-12-31] MEDS ORDERED: diphenhydrAMINE 25 MG CAP PO PRN (07:51)
[2019-12-31] MEDS ORDERED: hydrALAZINE 20 MG/ML VIAL SLOW IVP PRN (07:51)
[2019-12-31] MEDS ORDERED: Morphine 2 MG/ML VIAL SLOW IVP PRN (07:51)
[2019-12-31] MEDS ORDERED: Ondansetron PF 4 MG/2 ML Vial IVP PRN (07:51)
[2019-12-31] MEDS ORDERED: Hyoscyamine Sulfate SL 0.125 mg Tablet SL PRN (07:51)
[2019-12-31] MEDS ORDERED: Bisacodyl 10 MG SUPP PR PRN (07:51)
[2019-12-31] MEDS ORDERED: Phenazopyridine HCl 97.5 MG TABLET PO PRN (07:51)
[2019-12-31] MEDS ORDERED: Mag-Al 1200 mg/1200 mg/30 ML UDCUP PO PRN (07:51)
[2019-12-31] MEDS ORDERED: Oxybutynin 5 MG TAB PO PRN (07:51)
[2019-12-31] MEDS ORDERED: Doxycycline 100 MG CAP PO SCH ×2 (08:45→11:45)
[2019-12-31] MEDS ORDERED: hydrALAZINE 20 MG/ML VIAL ONE (09:01)
--- NOTE | 2019-12-31 10:20 | OP ---
DATE OF PROCEDURE: 12/31/2019 SERVICE: Urology. PREOPERATIVE DIAGNOSIS: BPH with urinary obstruction. POSTOPERATIVE DIAGNOSIS: BPH with urinary obstruction. PROCEDURE PERFORMED: Transurethral vaporization of the prostate with removal of UroLift implant. INDICATIONS FOR PROCEDURE: Mr. Tate is an 84-year-old white male with BPH and urinary obstructive symptoms. He initially underwent a UroLift procedure, which initially was working quite well, but then suddenly the patient experienced a sudden decline in urinary stream. When looking in, it appeared that one of his implants had migrated. There was a recurrent bulge within the prostate. I talked to the patient about doing more UroLift implants versus just going for vaporization of the prostate. He elected for vaporization. Risks and benefits were discussed and he has agreed to proceed forward. DESCRIPTION OF PROCEDURE: After identification of armband and verification of consent, the patient was brought back to the operating room, where he underwent general anesthesia with an LMA. He was then placed in a dorsal lithotomy position and prepped and draped in the usual sterile fashion. After appropriate time-out, a lubricated 26-Persian resectoscope sheath with visual obturator was passed through the urethra into the prostate and then into the bladder. The prostate showed the implants in good position except one which appeared to be imbedded in the bladder neck. This may have been the one that migrated. The visual obturator was switched out for the bipolar button. Vaporization was started out at the bladder neck and carried out forward until the verumontanum circumferentially, taking care to avoid the UroLift implants initially. Once the UroLift implants were adequately exposed, the vaporized function was used to melt the Prolene stitch that is attached to the urethral end piece and then the coag function used to magnetize the end piece and pull it off. All 4 implants were removed and accounted for externally outside the patient. Upon the removal, the remaining tissue was then vaporized out. Bladder neck relaxing incisions were made at 5 and 7 o'clock. There were no additional UroLift implants noted within the bladder or prostate upon completion. I satisfied that the prostate was wide open at this point. Meticulous hemostasis was performed, and after completion, the bladder was checked both in a decompressed and compressed fashion to ensure for good patency. I do not see any bulging or large prostatic nodules. The bladder was refilled, and then the resectoscope was removed. A 22-Persian 3-way Burris catheter was placed with ease into the patient's bladder and 30 mL of sterile water was placed into the balloon. CBI was initiated. B and O suppositories were placed in the patient's rectum. The patient was then taken out of positioning, had a StatLock affixed, was awakened, taken to PACU for recovery in stable condition. COMPLICATIONS: None. ESTIMATED BLOOD LOSS: Minimal. RETAINED TUBES AND DRAINS: 22-Persian 3-way Burris catheter on CBI. SPECIMENS: None. DISPOSITION: The patient will be kept in the hospital overnight. We will plan for voiding trial in the morning and then discharge subsequently. Job ID: [id number]
[2019-12-31 10:33] VITALS: BMI 30.1
[2019-12-31] MEDS: Amiodarone 200 MG TAB PO SCH (10:53)
[2019-12-31] MEDS ORDERED: PROPOFOL 200 MG/20 ML VIAL ONE (11:01)
[2019-12-31] MEDS ORDERED: Ondansetron PF 4 MG/2 ML Vial ONE (11:01)
[2019-12-31] MEDS ORDERED: Lidocaine 1% PF 5 ML VIAL ONE (11:01)
[2019-12-31] MEDS: Docusate 100 MG CAP PO SCH ×2 (11:04→20:54)
[2019-12-31] MEDS: Polyethylene Glycol 3350 17 GM Packet PO SCH (11:04)
[2019-12-31] MEDS: HYDROcodone/Acetaminophen 5/325 mg Tablet PO PRN (11:04)
[2019-12-31] MEDS: Famotidine/PF 20 mg/2ml Vial SLOW IVP SCH ×2 (11:07→20:54)
[2019-12-31] MEDS: Ipratropium Bromide 0.06% Nasal Inhaler 15ml EA NARE SCH ×2 (15:42→16:14)
[2019-12-31] MEDS: Acetaminophen 500 MG TAB PO PRN ×2 (16:10→20:54)
[2019-12-31] MEDS ORDERED: Atorvastatin Calcium 20 MG TAB PO SCH (21:00)
[2019-12-31] MEDS ORDERED: Gabapentin 100 MG CAP PO SCH (21:00)
[2019-12-31] MEDS ORDERED: Losartan 25 MG TAB PO SCH (21:00)
[2019-12-31] MEDS ORDERED: Zolpidem Tartrate 5 MG TAB PO SCH (22:15)
[2020-01-01] MEDS: Acetaminophen 500 MG TAB PO PRN (01:10)
[2020-01-01] MEDS: Ipratropium Bromide 0.06% Nasal Inhaler 15ml EA NARE SCH ×2 (06:18→14:37)
[2020-01-01] MEDS: HYDROcodone/Acetaminophen 5/325 mg Tablet PO PRN ×2 (06:38→14:34)
[2020-01-01] MEDS: Famotidine/PF 20 mg/2ml Vial SLOW IVP SCH (09:37)
[2020-01-01] MEDS: Amiodarone 200 MG TAB PO SCH (09:38)
[2020-01-01] MEDS: Docusate 100 MG CAP PO SCH (09:38)
[2020-01-01] MEDS: Polyethylene Glycol 3350 17 GM Packet PO SCH (09:38)
[2020-01-01 16:21] VITALS: BP 134/74; TEMP 97.5
--- NOTE | 2020-01-01 16:25 | PRG ---
DATE OF SERVICE: 01/01/2020 SUBJECTIVE: The patient states he is doing well. No complaints overnight. CBI was stopped this morning. OBJECTIVE: VITAL SIGNS: Temperature 97.6, pulse 66, respirations 16, blood pressure 171/71, and saturation 96% on room air. GENERAL: No apparent distress, communicative, alert. CARDIOVASCULAR: Regular rate and rhythm. ABDOMEN: Soft, nontender, and nondistended. Positive bowel sounds. : Burirs catheter in place, draining clear yellow urine. EXTREMITIES: No edema. ASSESSMENT AND PLAN: 84-year-old white male with history of UroLift, status post transurethral vaporization of prostate postop day 1. He is doing extremely well. He is hardly any evidence of bleeding. We will remove his catheter and perform a void trial. So long as he is able to urinate, he can be discharged home and follow up on an outpatient basis. I have gone over all of his discharge instructions. Job ID: [id number]
--- NOTE | 2020-01-02 01:46 | DIS ---
DATE OF ADMISSION: 12/31/2019 DATE OF DISCHARGE: 01/01/2020 PROCEDURE PERFORMED: On the patient transurethral vaporization of the prostate. BRIEF HISTORY: The patient is an 84-year-old white male with history of BPH, status post UroLift. He was doing well until he started having significant problems that occurred relatively rapidly. It was found that one of his UroLift implants had broken loose. We elected to go for a vaporization of prostate. Full history can be found in the H and P in the scanned portion of the BBE System. HOSPITAL COURSE: The patient underwent transurethral vaporization of the prostate. Postoperatively, he was kept in the hospital overnight for CBI. His catheter was removed in the morning. He demonstrated good voiding with minimal bleeding. He was then discharged home. DISPOSITION: Discharge to home. DISCHARGE CONDITION: Good. DISCHARGE MEDICATIONS: Please see med rec. DISCHARGE INSTRUCTIONS: Were discussed with the patient. Followup will be in approximately 1 to 2 weeks for postop check. Job ID: [id number]
== END 2020-01-01 16:15 | disposition home or self-care (01) ==
LOC: SDC 06:05 → SJJU 09:40
PROVIDERS: ADMIT Urology; ATTEND Urology
PROC: 0V507ZZ Destruction of Prostate, Via Natural or Artificial Opening (ICD-10-PCS; principal; 2019-12-31)
DX: N40.1 Benign prostatic hyperplasia with lower urinary tract symptoms (principal); N13.8 Other obstructive and reflux uropathy; Z79.899 Other long term (current) drug therapy; Z88.0 Allergy status to penicillin; Z88.2 Allergy status to sulfonamides; Z88.5 Allergy status to narcotic agent
CPT/HCPCS: 96374; 96376; G0378; J0360; J1956; J2405; J2704; J3010; S0028

== ENCOUNTER 2020-04-13 08:03 | Outpatient (CLI) | payer MEDICARE ==
--- NOTE | 2020-04-13 13:41 | CT ---
CTA CHEST WITH CONTRAST: Axial tomograms are obtained follow an aortogram protocol with multiplanar reconstruction and 3D post processing. INDICATION: Thoracic aortic aneurysm. Followup. COMPARISON: CTA chest 04/20/2019. FINDINGS: Aneurysmal dilatation of the abdominal aorta is again noted. This measured approximately 4.9 cm, unc hanged from the prior study. Aortic root at the sinus of Valsalva is measured at 3.9 cm, upper normal. The sinotubular diameter is measured at 3.0 cm, within normal range. Upper descending thoracic aorta measured at 2.8 cm, unchanged from last year. No evidence of dissection. Mediastinum unremarkable. The lung franklin remain clear. The mild atelectasis in the posterior lung base is more prominent on t he right. Osseous structures unremarkable. Upper abdomen unremarkable. IMPRESSION: Aneurysmal dilatation of the ascending thoracic aorta is stable. POS: AGW
== END 2020-04-13 08:04 | disposition home or self-care (01) ==
LOC: BICCT 08:03
PROVIDERS: ATTEND Internal Medicine Cardiovascular Disease
DX: I71.2 Thoracic aortic aneurysm, without rupture (principal)
CPT/HCPCS: 71275; 82565

== ENCOUNTER 2020-04-21 10:21 | Outpatient (CLI) | payer MEDICARE ==
[2020-04-21 17:03] LABS: SARS-CoV-2 MS2 Positive; SARS-CoV-2 N Gene Negative; SARS-CoV-2 S Gene Negative; SARS-CoV-2 by NAA Not Detected (NotDetected); SARS-CoV-2 orf1ab Negative
== END 2020-04-21 10:22 | disposition home or self-care (01) ==
LOC: LABBT 10:21
PROVIDERS: ATTEND Specialist
DX: Z01.812 Encounter for preprocedural laboratory examination (principal); Z20.822 Contact with and (suspected) exposure to COVID-19
CPT/HCPCS: 87635; U0003

== ENCOUNTER 2020-04-25 11:00 | Day surgery (SDC) | payer MEDICARE ==
[2020-04-21 10:38] VITALS: BMI 27.8
[2020-04-25] MEDS ORDERED: Lidocaine 1% PF 5 ML VIAL ONE (11:37)
[2020-04-25] MEDS ORDERED: Dexamethasone 20 MG/5 ML VIAL ONE (11:37)
[2020-04-25] MEDS ORDERED: Ondansetron PF 4 MG/2 ML Vial ONE (11:37)
[2020-04-25] MEDS ORDERED: ePHEDrine 50 MG/ML VIAL ONE (11:37)
[2020-04-25] MEDS ORDERED: PROPOFOL 200 MG/20 ML VIAL ONE (11:37)
[2020-04-25] MEDS ORDERED: Fentanyl 100 MCG/2 ML VIAL ONE (13:24)
--- NOTE | 2020-04-25 13:42 | MRI ---
MRI CERVICAL SPINE WITHOUT CONTRAST: Date: 04/25/2020 INDICATION: Cervical radiculopathy. Comparison made to MRI cervical spine dated 03/11/2018. FINDINGS: Postop changes are again noted at C5-6. Anterior plate and screws with interbody implant and interbod y fusion at this level has a similar appearance to the prior study from 2018. The other cervical vertebra maintain height and exhibit normal signal. No significant disc bulge at C2-3. C3-4: Posterior disc bulge and spondylosis flatten the thecal sac and mildly efface the anterior sub arachnoid space. No significant central canal stenosis. Mild right foraminal narrowing due to facet a nd uncinate hypertrophy. C4-5: Posterior disc bulge and spondylytic changes mildly compress the anterior cord producing sligh t flattening of the anterior cord. This is similar in appearance to the exam of 2018. Mild bilateral foraminal narrowing due to facet and uncinate hypertrophy. C5-6: Postop fusion changes. Spondylosis more pronounced on the right with uncinate hypertrophy prod ucing right foraminal stenosis. No significant cord compression. Moderate left foraminal stenosis. C6-7: Disc bulge and spondylosis efface the anterior subarachnoid space and abut the anterior cord w ithout significant cord compression. Mild bilateral foraminal narrowing more severe on the left due t o facet and uncinate hypertrophy. Cervical cord signal appears normally preserved. IMPRESSION: Postoperative and degenerative disc changes of the cervical spine as described above. Cord compressio n at C4-5 is similar to the prior exam. POS: AGW
== END 2020-04-25 14:54 | disposition home or self-care (01) ==
LOC: SDC/OP 11:00
PROVIDERS: ATTEND Specialist
DX: M47.22 Other spondylosis with radiculopathy, cervical region (principal); M48.02 Spinal stenosis, cervical region; M96.1 Postlaminectomy syndrome, not elsewhere classified; G89.4 Chronic pain syndrome; M48.062 Spinal stenosis, lumbar region with neurogenic claudication; G95.20 Unspecified cord compression; I10 Essential (primary) hypertension; I48.91 Unspecified atrial fibrillation; E78.5 Hyperlipidemia, unspecified; Z87.891 Personal history of nicotine dependence; Z79.01 Long term (current) use of anticoagulants; Z79.899 Other long term (current) drug therapy; Z88.0 Allergy status to penicillin; Z88.2 Allergy status to sulfonamides; Z88.5 Allergy status to narcotic agent; Z98.1 Arthrodesis status
CPT/HCPCS: 72141; J1100; J2405; J2704; J3010; J3490

== ENCOUNTER 2020-05-04 07:08 | Outpatient (CLI) | payer MEDICARE ==
[2020-05-06 00:14] LABS: SARS-CoV-2 PCR by NAA Not Detected (NotDetected)
== END 2020-05-04 07:09 | disposition home or self-care (01) ==
LOC: LABBT 07:08
PROVIDERS: ATTEND Specialist
DX: Z01.812 Encounter for preprocedural laboratory examination (principal); Z20.822 Contact with and (suspected) exposure to COVID-19
CPT/HCPCS: U0003; U0005; 87635

== ENCOUNTER 2020-05-09 06:16 | Day surgery (SDC) | payer MEDICARE ==
[2020-05-05 13:08] VITALS: BMI 27.8
[2020-05-09] MEDS ORDERED: EPINEPHrine 1 MG/ML AMP ONE (06:56)
[2020-05-09] MEDS ORDERED: Bupivacaine PF 0.5% 30 ML VIAL ONE (06:56)
[2020-05-09] MEDS ORDERED: Fentanyl 100 MCG/2 ML VIAL ONE (07:45)
[2020-05-09] MEDS ORDERED: Propofol 500 MG/50 ML VIAL ONE (07:46)
[2020-05-09] MEDS ORDERED: Vancomycin 1 GM/200 ML BAG ONE (07:54)
[2020-05-09] MEDS ORDERED: Ketamine 50 MG/ML (10ML VIAL) ONE (07:57)
[2020-05-09] MEDS ORDERED: Propofol 1,000 MG/100 ML VIAL IV ONE (07:57)
[2020-05-09] MEDS ORDERED: PHENYLEPHRINE-NS 100 MCG/ML 10 ML SYRINGE ONE (08:36)
[2020-05-09] MEDS ORDERED: PROPOFOL 20 ML ONE (09:44)
--- NOTE | 2020-05-09 09:54 | RAD ---
Exam: Single fluoroscopic view. Dorsal column stimulator placement Exposure: 42.6 mGy, 4 minutes 57 seconds FINDINGS: Single fluoroscopic image demonstrates the distal tip of the dorsal constant liters to be a t the superior aspect of T7 IMPRESSION: Fluoroscopy as above
--- NOTE | 2020-05-09 11:14 | OP ---
DATE OF PROCEDURE: 05/09/2020 PREOPERATIVE DIAGNOSES: 1. Post-laminectomy syndrome. 2. Chronic pain syndrome. 3. Lumbar radiculopathy. POSTOPERATIVE DIAGNOSES: 1. Post-laminectomy syndrome. 2. Chronic pain syndrome. 3. Lumbar radiculopathy. PROCEDURES PERFORMED: 1. Spinal cord stimulator generator implant. 2. Spinal cord stimulator lead implant x2. DESCRIPTION OF PROCEDURE: The patient was taken to the procedure room and placed prone on the procedure room table. A time-out was performed. The back was prepped with DuraPrep. Sterile drapes were applied. Using fluoroscopy, we located the interspace of T12-L1. We anesthetized the skin and made a vertical incision and then blunt dissected this down to fascia. We used the 14-gauge supplied Touhy needle and inserted in a paramedian technique to engage in the ligament. We lost resistance to achieve access to the epidural space. Aspiration was negative for heme or CSF. An 8 contact Medtronic lead was passed through the needle and up the midline dorsal epidural space to the mid body of C7. We placed a second lead on the contralateral side parallel to the first lead using the exact same technique. Stimulation was then performed with the patient awake and he felt paresthesia in all pain areas. We then took the needles out and the stylets out of the leads using continuous fluoro to ensure the lead remained in place. We slid anchors over both leads. We fixated these to fascia using 2-0 silk suture x2 on each lead. We then anesthetized the battery pocket area in the left buttock. A horizontal incision was made and then dissected down to Alen fascia. We blunt dissected inferior and superior to make a pocket, used a tunneling device to make a pocket between the two incisions and then placed the leads through the tunneling device and brought into the battery pocket area. We have created a tension relief loop at the anchor site. We connected the leads to the battery and torqued them down to fixate them to the battery. Testing was performed and all impedances were good. We placed battery inside the pocket. We then approximated the fascial layer using 2-0 Vicryl sutures in horizontal mattress style. We used 3-0 Rapide as a subcuticular stitch for skin approximation. We used a layer of Dermabond over these two incisions. Once dried, we added sterile 4x4s and Medipore tape. The patient was taken to Day Stay under stable condition. Job ID: [id number]
== END 2020-05-09 12:10 | disposition home or self-care (01) ==
LOC: SDC 06:16
PROVIDERS: ATTEND Specialist
PROC: 0JH70BZ Insertion of Single Array Stimulator Generator into Back Subcutaneous Tissue and Fascia, Open Approach (ICD-10-PCS; principal; 2020-05-09)
PROC: 00HU3MZ Insertion of Neurostimulator Lead into Spinal Canal, Percutaneous Approach (ICD-10-PCS; 2020-05-09)
DX: M96.1 Postlaminectomy syndrome, not elsewhere classified (principal); G89.4 Chronic pain syndrome; M54.16 Radiculopathy, lumbar region; Z79.01 Long term (current) use of anticoagulants; Z79.899 Other long term (current) drug therapy; Z88.0 Allergy status to penicillin; Z88.2 Allergy status to sulfonamides; Z88.5 Allergy status to narcotic agent
CPT/HCPCS: 63650 ×2; 63685; 72070; 76000; C1778; C1787; L8679; L8689; J0171; J0690; J2704; J3010; J3370; S0020

== ENCOUNTER → 2020-07-27 | Day surgery (SDC) | payer MEDICARE | LOC: MRI 15:08 | PROVIDERS: ATTEND Specialist | DX: M25.551 Pain in right hip (principal); Z88.0 Allergy status to penicillin; Z88.2 Allergy status to sulfonamides; Z88.5 Allergy status to narcotic agent ==

== ENCOUNTER 2020-08-02 12:00 | Outpatient (CLI) | payer MEDICARE | END 2020-08-02 12:01 | disposition home or self-care (01) | LOC: BICRAD 12:00 | PROVIDERS: ATTEND Specialist | DX: M47.26 Other spondylosis with radiculopathy, lumbar region (principal); Z98.890 Other specified postprocedural states | CPT/HCPCS: 72110 ==

== ENCOUNTER 2020-08-10 12:40 | Outpatient (CLI) | payer MEDICARE ==
[~2020-08-10 12:40] MED LIST changes: -EPHEDRINE 25 MG/5 ML SYRINGE ONE; -Lidocaine 1% PF 5 ML VIAL ONE; -Ondansetron PF 4 MG/2 ML Vial ONE; -PROPOFOL 200 MG/20 ML VIAL ONE
== END 2020-08-10 12:41 | disposition home or self-care (01) ==
LOC: MRI 12:40
PROVIDERS: ATTEND Specialist
DX: M47.26 Other spondylosis with radiculopathy, lumbar region (principal)
CPT/HCPCS: 72158; A9579

== ENCOUNTER 2020-09-14 14:02 | Outpatient (CLI) | payer MEDICARE | END 2020-09-14 14:03 | disposition home or self-care (01) | LOC: BICCT 14:02 | PROVIDERS: ATTEND Neurological Surgery | DX: M47.26 Other spondylosis with radiculopathy, lumbar region (principal) | CPT/HCPCS: 72131 ==

== ENCOUNTER 2020-10-05 08:44 | Inpatient (IN) | payer MEDICARE ==
[2020-10-04 14:53] VITALS: BMI 28.5
[2020-10-05] MEDS ORDERED: Morphine 10 MG/ML VIAL ONE (09:46)
[2020-10-05] MEDS ORDERED: Fentanyl 250 MCG/5 ML VIAL ONE (09:46)
[2020-10-05] MEDS ORDERED: SUGAMMADEX SODIUM 200 MG/2 ML VIAL ONE (09:46)
[2020-10-05] MEDS ORDERED: Thrombin 5000 UNITS/5 ML VIAL ONE (09:53)
[2020-10-05] MEDS ORDERED: EPINEPHrine 1 MG/ML AMP ONE (09:53)
[2020-10-05] MEDS ORDERED: Bupivacaine PF 0.5% 30 ML VIAL ONE (09:53)
[2020-10-05] MEDS ORDERED: Clindamycin/D5W 900 mg/50 ml Premix Bag ONE ×2 (10:16→15:27)
[2020-10-05] MEDS ORDERED: Levofloxacin 500 mg/D5W 100 ml Premix Bag ONE (10:16)
[2020-10-05] MEDS ORDERED: Rocuronium Bromide 10 MG/ML (10ML VIAL) ONE (10:37)
[2020-10-05] MEDS ORDERED: PHENYLEPHRINE-NS 100 MCG/ML 10 ML SYRINGE ONE (10:37)
[2020-10-05] MEDS ORDERED: ePHEDrine Sulfate 50 MG/10 ML VIAL ONE (10:37)
[2020-10-05] MEDS ORDERED: PROPOFOL 200 MG/20 ML VIAL ONE (10:37)
[2020-10-05] MEDS ORDERED: Lidocaine 1% PF 5 ML VIAL ONE (10:37)
[2020-10-05] MEDS ORDERED: Ondansetron PF 4 MG/2 ML Vial ONE (10:37)
[2020-10-05] MEDS ORDERED: Fentanyl 100 MCG/2 ML VIAL ONE ×2 (12:56→13:09)
[2020-10-05] MEDS ORDERED: Morphine 4 MG/ML VIAL ONE (12:56)
[2020-10-05] MEDS ORDERED: Tamsulosin HCl 0.4 MG CAP ONE (13:02)
[2020-10-05] MEDS ORDERED: Morphine 2 MG/ML VIAL ONE ×3 (13:09→14:08)
[2020-10-05] MEDS ORDERED: HYDROcodone/Acetaminophen 5/325 mg Tablet ONE (14:44)
[2020-10-05] MEDS ORDERED: Acetaminophen 650 MG Suppository PR PRN (19:15)
[2020-10-05] MEDS ORDERED: Bisacodyl 10 MG SUPP PR PRN (19:15)
[2020-10-05] MEDS ORDERED: HYDROcodone/Acetaminophen 7.5/325 mg Tablet PO PRN (19:15)
[2020-10-05] MEDS ORDERED: diphenhydrAMINE 50 MG/ML VIAL IVP PRN (19:15)
[2020-10-05] MEDS ORDERED: Morphine 4 MG/ML VIAL SLOW IVP PRN (19:15)
[2020-10-05] MEDS ORDERED: diphenhydrAMINE 25 MG CAP PO PRN (19:15)
[2020-10-05] MEDS ORDERED: Acetaminophen 325 MG TAB PO PRN (19:15)
[2020-10-05] MEDS ORDERED: Ondansetron PF 4 MG/2 ML Vial IM PRN (19:15)
[2020-10-05] MEDS ORDERED: tiZANidine HCl 4 MG TAB PO PRN (19:16)
[2020-10-05] MEDS: Clindamycin/D5W 900 MG in Premix Bag 1 BAG IVPB SCH (21:06)
[2020-10-05] MEDS: Morphine 2 MG/ML VIAL SLOW IVP PRN (21:07)
[2020-10-05] MEDS: Sodium Chloride 0.9% 1,000 ML IV SCH (21:13)
[2020-10-06] MEDS: HYDROcodone/Acetaminophen 7.5/325 mg Tablet PO PRN ×4 (04:12→21:39)
[2020-10-06] MEDS: Clindamycin/D5W 900 MG in Premix Bag 1 BAG IVPB SCH (06:14)
[2020-10-06] MEDS: Tamsulosin HCl 0.4 MG CAP PO SCH (06:15)
[2020-10-06] MEDS: Sodium Chloride 0.9% 1,000 ML IV SCH (17:26)
[2020-10-06] MEDS: Morphine 2 MG/ML VIAL SLOW IVP PRN (17:40)
[2020-10-07] MEDS: HYDROcodone/Acetaminophen 7.5/325 mg Tablet PO PRN ×2 (02:09→12:27)
[2020-10-07] MEDS: Tamsulosin HCl 0.4 MG CAP PO SCH (05:36)
[2020-10-07 13:09] LABS: #Eosinphils 0.1 thou/uL (0.0-0.7); #Lymphocytes 0.5 thou/uL (1.20-3.40); #Monocytes 0.7 thou/uL (0.11-0.59); #Neutrophils 4.6 thou/uL (1.40-6.50); %Basophils 0.3 % (0.0-1.0); %Eosinophils 2.1 % (0.0-10.0); %Lymphocytes 8.1 % (21.0-51.0); %Monocytes 11.7 % (0.0-10.0); %Neutrophils 77.8 % (42.0-75.0); Hemoglobin 11.5 g/dL (14.0-18.0); Mean Corpuscular HGB CONC 32.1 g/dL (32.0-36.0); Mean Corpuscular Hemoglobin 31.9 pg (27.0-31.0); Mean Corpuscular Volume 99.3 fL (78.0-98.0); Mean Platelet Volume 7.6 fL (7.4-10.4); Platelet Count 94 thou/uL (130-400); White Blood Cell (WBC) Count 5.9 thou/uL (4.8-10.8)
[2020-10-07 13:21] LABS: MDiff Complete? YES; Platelet Morphology Comment Appears Decreased; Polychromasia SLIGHT = 2-3 cells (100X) (0-2/hpf)
[2020-10-07 13:28] LABS: Anion Gap 12 mmol/L (10-20); BUN (Urea Nitrogen) 16 mg/dL (8.4-25.7); Calc. Creatinine Clearance 64 mL/min (70-130); Calcium 8.6 mg/dL (7.8-10.44); Carbon Dioxide 27 mmol/L (23-31); Chloride 104 mmol/L (98-107); Glucose 91 mg/dL (83-110); Sodium 139 mmol/L (136-145)
[2020-10-07 15:09] VITALS: BP 132/72; TEMP 98.4
== END 2020-10-07 17:41 | DRG 460 ==
LOC: SDC 08:44 → T4-B 17:38 → OBSVTOIN 10-06 17:00
PROVIDERS: ADMIT Neurological Surgery; ATTEND Neurological Surgery
PROC: 0SG0071 Fusion of Lumbar Vertebral Joint with Autologous Tissue Substitute, Posterior Approach, Posterior Column, Open Approach (ICD-10-PCS; principal; 2020-10-05)
PROC: 0SB20ZZ Excision of Lumbar Vertebral Disc, Open Approach (ICD-10-PCS; 2020-10-05)
PROC: 01NB0ZZ Release Lumbar Nerve, Open Approach (ICD-10-PCS; 2020-10-05)
DX: M51.16 Intervertebral disc disorders with radiculopathy, lumbar region (principal); M19.90 Unspecified osteoarthritis, unspecified site; E78.00 Pure hypercholesterolemia, unspecified; N40.0 Benign prostatic hyperplasia without lower urinary tract symptoms; G89.4 Chronic pain syndrome; I10 Essential (primary) hypertension; Z88.0 Allergy status to penicillin; Z88.2 Allergy status to sulfonamides; Z88.8 Allergy status to other drugs, medicaments and biological substances
CPT/HCPCS: 36415; 76000; 80048; 85025; 93005; 93010; 93970; 96374; 96375; 96376; C1713; G0378; J0171; J1956; J2270; J2405; J2704; J3010; J3490; S0020

== ENCOUNTER 2021-01-04 10:55 | Outpatient (CLI) | payer MEDICARE | END 2021-01-04 10:56 | disposition home or self-care (01) | LOC: BICRAD 10:55 | PROVIDERS: ATTEND Specialist | DX: M47.26 Other spondylosis with radiculopathy, lumbar region (principal); M43.16 Spondylolisthesis, lumbar region; M41.9 Scoliosis, unspecified; M25.78 Osteophyte, vertebrae; Z98.890 Other specified postprocedural states | CPT/HCPCS: 72120 ==

== ENCOUNTER 2021-01-25 13:42 | Outpatient (CLI) | payer MEDICARE | END 2021-01-25 13:43 | disposition home or self-care (01) | LOC: MRI 13:42 | PROVIDERS: ATTEND Specialist | DX: M47.26 Other spondylosis with radiculopathy, lumbar region (principal); M96.1 Postlaminectomy syndrome, not elsewhere classified; Z98.890 Other specified postprocedural states | CPT/HCPCS: 72158; 82565 ==

== ENCOUNTER 2021-02-13 11:08 | Outpatient (CLI) | payer MEDICARE | END 2021-02-13 11:09 | disposition home or self-care (01) | LOC: CT 11:08 | PROVIDERS: ATTEND Neurological Surgery | DX: M54.50 Low back pain, unspecified (principal); M25.59 Pain in other specified joint; M16.0 Bilateral primary osteoarthritis of hip; K57.30 Diverticulosis of large intestine without perforation or abscess without bleeding | CPT/HCPCS: 72131; 72192 ==

== ENCOUNTER 2021-02-21 08:55 | Outpatient (CLI) | payer MEDICARE ==
[2021-02-21 21:47] LABS: SARS-CoV-2 PCR by NAA Not Detected (NotDetected)
== END 2021-02-21 08:56 | disposition home or self-care (01) ==
LOC: LABBT 08:55
PROVIDERS: ATTEND Neurological Surgery
DX: Z01.812 Encounter for preprocedural laboratory examination (principal); T84.498A Other mechanical complication of other internal orthopedic devices, implants and grafts, initial encounter; Z20.822 Contact with and (suspected) exposure to COVID-19
CPT/HCPCS: 93005; U0003; U0005; 93010

== ENCOUNTER 2021-02-22 09:31 | Day surgery (SDC) | payer MEDICARE ==
[2021-02-21 12:49] VITALS: BMI 28.5
[2021-02-22] MEDS ORDERED: Thrombin 5000 UNITS/5 ML VIAL ONE (09:40)
[2021-02-22] MEDS ORDERED: EPINEPHrine 1 MG/ML AMP ONE (09:40)
[2021-02-22] MEDS ORDERED: Bupivacaine PF 0.5% 30 ML VIAL ONE (09:40)
[2021-02-22] MEDS ORDERED: Levofloxacin 500 mg/D5W 100 ml Premix Bag ONE (09:50)
[2021-02-22] MEDS ORDERED: Clindamycin/D5W 900 mg/50 ml Premix Bag ONE (09:50)
[2021-02-22 10:20] LABS: #Basophils 0.1 thou/uL (0.0-0.2); #Eosinphils 0.4 thou/uL (0.0-0.7); #Lymphocytes 1.3 thou/uL (1.20-3.40); #Monocytes 0.6 thou/uL (0.11-0.59); #Neutrophils 3.3 thou/uL (1.40-6.50); %Basophils 1.3 % (0.0-1.0); %Eosinophils 7.4 % (0.0-10.0); %Lymphocytes 22.7 % (21.0-51.0); %Neutrophils 57.5 % (42.0-75.0); Hemoglobin 13.4 g/dL (14.0-18.0); Mean Corpuscular HGB CONC 33.6 g/dL (32.0-36.0); Mean Corpuscular Hemoglobin 32.8 pg (27.0-31.0); Mean Corpuscular Volume 97.6 fL (78.0-98.0); Mean Platelet Volume 7.6 fL (7.4-10.4); Platelet Count 164 thou/uL (130-400); RBC Distribution Width 12.3 % (11.5-14.5); Red Blood Cell (RBC) Count 4.07 mill/uL (4.70-6.10); White Blood Cell (WBC) Count 5.7 thou/uL (4.8-10.8)
[2021-02-22 10:30] LABS: Anion Gap 11 mmol/L (10-20); BUN (Urea Nitrogen) 30 mg/dL (8.4-25.7); Calc. Creatinine Clearance 51 mL/min (70-130); Calcium 9.9 mg/dL (7.8-10.44); Carbon Dioxide 27 mmol/L (23-31); Chloride 110 mmol/L (98-107); Glucose 92 mg/dL (83-110); Potassium 3.9 mmol/L (3.5-5.1); Sodium 144 mmol/L (136-145)
[2021-02-22 10:45] LABS: INR-International Normal Ratio 1.1; PTT 31.9 sec (22.9-36.1); Prothrombin Time 14.1 sec (12.0-14.7)
[2021-02-22] MEDS ORDERED: Fentanyl 100 MCG/2 ML VIAL ONE ×2 (10:54→12:27)
[2021-02-22] MEDS ORDERED: Dexmedetomidine 200 MCG/2 ML VIAL ONE (10:55)
[2021-02-22] MEDS ORDERED: Rocuronium Bromide 10 MG/ML (10ML VIAL) ONE (11:06)
[2021-02-22] MEDS ORDERED: Dexamethasone 20 MG/5 ML VIAL ONE (11:06)
[2021-02-22] MEDS ORDERED: Lidocaine 1% PF 5 ML VIAL ONE (11:06)
[2021-02-22] MEDS ORDERED: Ondansetron PF 4 MG/2 ML Vial ONE (11:06)
[2021-02-22] MEDS ORDERED: PHENYLEPHRINE-NS 100 MCG/ML 10 ML SYRINGE ONE (11:06)
[2021-02-22] MEDS ORDERED: PROPOFOL 200 MG/20 ML VIAL ONE (11:06)
[2021-02-22] MEDS ORDERED: SUGAMMADEX SODIUM 200 MG/2 ML VIAL ONE (11:55)
[2021-02-22] MEDS ORDERED: Tamsulosin HCl 0.4 MG CAP ONE (13:28)
== END 2021-02-22 14:45 | disposition home or self-care (01) ==
LOC: SDC 09:31
PROVIDERS: ATTEND Neurological Surgery
PROC: 0QJY0ZZ Inspection of Lower Bone, Open Approach (ICD-10-PCS; principal; 2021-02-22)
PROC: 0SP004Z Removal of Internal Fixation Device from Lumbar Vertebral Joint, Open Approach (ICD-10-PCS; 2021-02-22)
DX: T84.216A Breakdown (mechanical) of internal fixation device of vertebrae, initial encounter (principal); T84.84XA Pain due to internal orthopedic prosthetic devices, implants and grafts, initial encounter; T84.226A Displacement of internal fixation device of vertebrae, initial encounter; M19.90 Unspecified osteoarthritis, unspecified site; E78.5 Hyperlipidemia, unspecified; G89.4 Chronic pain syndrome; I10 Essential (primary) hypertension; Z79.01 Long term (current) use of anticoagulants; Z79.899 Other long term (current) drug therapy; Z88.0 Allergy status to penicillin; Z88.2 Allergy status to sulfonamides; Z88.5 Allergy status to narcotic agent
CPT/HCPCS: 76000; 80048; 85025; 85610; 85730; J0171; J1100; J1956; J2405; J2704; J3010; J3490; S0020

== ENCOUNTER 2021-03-23 14:42 | Outpatient (CLI) | payer MEDICARE | END 2021-03-23 14:43 | disposition home or self-care (01) | LOC: BICMAMMO 14:42 | PROVIDERS: ATTEND Neurological Surgery | DX: Z13.820 Encounter for screening for osteoporosis (principal); M54.16 Radiculopathy, lumbar region; M85.851 Other specified disorders of bone density and structure, right thigh; M85.852 Other specified disorders of bone density and structure, left thigh | CPT/HCPCS: 77080 ==

== ENCOUNTER 2021-03-31 08:13 | Outpatient (CLI) | payer MEDICARE ==
[2021-03-31] MEDS ORDERED: Iopamidol-370 76% 500 ML 1 ML ONE (08:28)
== END 2021-03-31 08:14 | disposition home or self-care (01) ==
LOC: BICCT 08:13
PROVIDERS: ATTEND Nurse Practitioner Family
DX: I71.2 Thoracic aortic aneurysm, without rupture (principal)
CPT/HCPCS: 71275; 82565; Q9967

== ENCOUNTER 2022-01-17 11:48 | Outpatient (CLI) | payer MEDICARE | END 2022-01-17 11:49 | disposition home or self-care (01) | LOC: SCSMRI 11:48 | PROVIDERS: ATTEND Specialist | DX: M47.26 Other spondylosis with radiculopathy, lumbar region (principal); M51.16 Intervertebral disc disorders with radiculopathy, lumbar region; M48.061 Spinal stenosis, lumbar region without neurogenic claudication; M43.16 Spondylolisthesis, lumbar region; M25.551 Pain in right hip; M25.552 Pain in left hip; S73.192A Other sprain of left hip, initial encounter; M70.62 Trochanteric bursitis, left hip; M94.8X8 Other specified disorders of cartilage, other site; Z98.890 Other specified postprocedural states | CPT/HCPCS: 72158 ==

== ENCOUNTER 2022-02-07 11:06 | Outpatient (CLI) | payer MEDICARE ==
[~2022-02-07 11:06] MED LIST changes: +Iopamidol 370 76% 100 ML VIAL ONE; -Magnevist 469MG/ML 20 ML VIAL ONE
== END 2022-02-07 11:07 | disposition home or self-care (01) ==
LOC: BICCT 11:06
PROVIDERS: ATTEND Nurse Practitioner Family
DX: I25.10 Atherosclerotic heart disease of native coronary artery without angina pectoris (principal); I71.20 Thoracic aortic aneurysm, without rupture, unspecified
CPT/HCPCS: 71275; 82565; Q9967

== ENCOUNTER 2022-06-08 13:04 | Emergency (ER) | payer MEDICARE ==
[~2022-06-08 13:04] MED LIST changes: -Iopamidol 370 76% 100 ML VIAL ONE; +Iopamidol-370 76% 500 ML 1 ML ONE
[2022-06-08 13:38] LABS: #Basophils 0.1 thou/uL (0.0-0.2); #Eosinphils 0.2 thou/uL (0.0-0.7); #Lymphocytes 1.9 thou/uL (1.20-3.40); #Monocytes 0.7 thou/uL (0.11-0.59); #Neutrophils 5.8 thou/uL (1.40-6.50); %Basophils 0.9 % (0.0-1.0); %Eosinophils 1.9 % (0.0-10.0); %Monocytes 7.9 % (0.0-10.0); %Neutrophils 67.3 % (42.0-75.0); Hemoglobin 13.2 g/dL (14.0-18.0); Mean Corpuscular HGB CONC 32.5 g/dL (32.0-36.0); Mean Corpuscular Hemoglobin 32.3 pg (27.0-31.0); Mean Corpuscular Volume 99.3 fl (78.0-98.0); Mean Platelet Volume 8.5 fL (7.4-10.4); Platelet Count 141 10x3/uL (130-400); RBC Distribution Width 12.8 % (11.5-14.5); White Blood Cell (WBC) Count 8.6 10x3/uL (4.8-10.8)
[2022-06-08 13:58] LABS: ALT (SGPT) 49 U/L (8-55); AST (SGOT) 38 U/L (5-34); Albumin 3.2 g/dL (3.4-4.8); Alkaline Phosphatase 58 U/L (40-110); Anion Gap 15 mmol/L (10-20); BUN (Urea Nitrogen) 27 mg/dL (8.4-25.7); Bilirubin, Total 0.9 mg/dL (0.2-1.2); Calc. Creatinine Clearance 0 mL/min (70-130); Carbon Dioxide 27 mmol/L (23-31); Chloride 102 mmol/L (98-107); Estimated GFR 59; Globulin 2.9 g/dL (2.4-3.5); Glucose 92 mg/dL (83-110); Potassium 4.6 mmol/L (3.5-5.1); Protein, Total 6.1 g/dL (5.8-8.1); Sodium 139 mmol/L (136-145)
[2022-06-08] MEDS ORDERED: Midazolam HCl 2 mg/2 ml Vial ONE (18:35)
[2022-06-08] MEDS ORDERED: Glycerin Pediatric Sup. (4ml) ONE (18:51)
== END 2022-06-08 19:22 | disposition home or self-care (01) ==
LOC: ERS 13:04
DX: K56.41 Fecal impaction (principal); I10 Essential (primary) hypertension; E78.5 Hyperlipidemia, unspecified
CPT/HCPCS: 36415; 74177; 80053; 83690; 85025; 96374; J2250; Q9967

== ENCOUNTER 2023-01-29 13:00 | Outpatient (CLI) | payer MEDICARE ==
[2023-01-29 14:55] LABS: Hemoglobin 12.1 g/dL (13.5-17.5); Mean Corpuscular HGB CONC 31.8 g/dL (32.0-36.0); Mean Corpuscular Volume 91.1 fl (81.2-95.1); Mean Platelet Volume 10.9 fl (7.4-10.4); Platelet Count 173 10x3/uL (150-450); RBC Distribution Width 14.5 % (11.5-14.5); Red Blood Cell (RBC) Count 4.17 10x6/uL (4.32-5.72); White Blood Cell (WBC) Count 5.4 10x3/uL (3.5-10.5)
[2023-01-29 15:04] LABS: Anion Gap 13 mmol/L (10-20); BUN (Urea Nitrogen) 23 mg/dL (8.4-25.7); Calc. Creatinine Clearance 0 mL/min (70-130); Calcium 9.1 mg/dL (7.8-10.44); Carbon Dioxide 28 mmol/L (23-31); Chloride 105 mmol/L (98-107); Estimated GFR 41; Glucose 94 mg/dL (83-110); Potassium 4.1 mmol/L (3.5-5.1); Sodium 142 mmol/L (136-145)
== END 2023-01-29 13:01 | disposition home or self-care (01) ==
LOC: LABBT 13:00
PROVIDERS: ATTEND Neurological Surgery
DX: Z01.818 Encounter for other preprocedural examination (principal); M54.12 Radiculopathy, cervical region
CPT/HCPCS: 80048; 85027; 93005; 93010

== ENCOUNTER 2023-03-13 06:42 | Day surgery (SDC) | payer MEDICARE ==
[2023-03-12 12:42] VITALS: BMI 26.4
[2023-03-13] MEDS ORDERED: EPINEPHrine 1 MG/ML VIAL ONE (06:46)
[2023-03-13] MEDS ORDERED: Bupivacaine PF 0.5% 30 ML VIAL ONE (06:46)
[2023-03-13] MEDS ORDERED: Thrombin 5000 UNITS/5 ML VIAL ONE (06:46)
[2023-03-13 07:12] LABS: #Basophils 0.1 thou/uL (0.0-0.2); #Eosinphils 0.1 thou/uL (0.0-0.7); #Monocytes 0.6 thou/uL (0.11-0.59); #Neutrophils 3.2 thou/uL (1.40-6.50); %Basophils 1.2 % (0.0-1.0); %Eosinophils 2.3 % (0.0-10.0); %Lymphocytes 29.1 % (21.0-51.0); %Monocytes 10.7 % (0.0-10.0); %Neutrophils 56.5 % (42.0-75.0); Hematocrit 39.8 % (42.0-52.0); Hemoglobin 12.6 g/dL (14.0-18.0); Mean Corpuscular HGB CONC 31.7 g/dL (32.0-36.0); Mean Corpuscular Volume 91.7 fl (78.0-98.0); Mean Platelet Volume 10.1 fL (7.4-10.4); Platelet Count 178 10x3/uL (130-400); RBC Distribution Width 16.3 % (11.5-14.5); Red Blood Cell (RBC) Count 4.34 mill/uL (4.70-6.10); White Blood Cell (WBC) Count 5.7 10x3/uL (4.8-10.8)
[2023-03-13] MEDS ORDERED: Sodium Chloride 0.9% 100 ML ONE ×2 (07:26→11:33)
[2023-03-13] MEDS ORDERED: CEFAZOLIN 2 GM VIAL ONE ×2 (07:26→11:33)
[2023-03-13] MEDS ORDERED: Ondansetron PF 4 MG/2 ML Vial ONE (07:30)
[2023-03-13] MEDS ORDERED: PROPOFOL 200 MG/20 ML VIAL ONE (07:30)
[2023-03-13] MEDS ORDERED: Rocuronium Bromide 10 MG/ML (10ML VIAL) ONE (07:30)
[2023-03-13] MEDS ORDERED: Dexamethasone 20 MG/5 ML VIAL ONE (07:30)
[2023-03-13 07:35] LABS: Anion Gap 13 mmol/L (10-20); BUN (Urea Nitrogen) 22 mg/dL (8.4-25.7); Calc. Creatinine Clearance 42 mL/min (70-130); Calcium 9.2 mg/dL (7.8-10.44); Carbon Dioxide 27 mmol/L (23-31); Chloride 105 mmol/L (98-107); Estimated GFR 44; Glucose 94 mg/dL (83-110); Potassium 3.5 mmol/L (3.5-5.1); Sodium 141 mmol/L (136-145)
[2023-03-13] MEDS ORDERED: Fentanyl 250 MCG/5 ML VIAL ONE (09:19)
[2023-03-13] MEDS ORDERED: HYDROmorphone 0.5 MG/0.5 ML SYRINGE ONE ×3 (09:40→10:31)
[2023-03-13] MEDS ORDERED: Tamsulosin HCl 0.4 MG CAP ONE (09:51)
[2023-03-13] MEDS ORDERED: Acetaminophen/Codeine 30-300mg Tablet ONE (11:33)
== END 2023-03-13 12:37 | disposition home or self-care (01) ==
LOC: SDC 06:42
PROVIDERS: ATTEND Neurological Surgery
PROC: 0RG10A0 Fusion of Cervical Vertebral Joint with Interbody Fusion Device, Anterior Approach, Anterior Column, Open Approach (ICD-10-PCS; principal; 2023-03-13)
DX: M54.12 Radiculopathy, cervical region (principal); E78.5 Hyperlipidemia, unspecified; G89.4 Chronic pain syndrome; I10 Essential (primary) hypertension; I48.91 Unspecified atrial fibrillation; I71.9 Aortic aneurysm of unspecified site, without rupture; Z88.1 Allergy status to other antibiotic agents; Z88.5 Allergy status to narcotic agent; Z88.0 Allergy status to penicillin; Z88.2 Allergy status to sulfonamides; Z79.899 Other long term (current) drug therapy; Z98.890 Other specified postprocedural states
CPT/HCPCS: 36415; 80048; 85025; 93005; 93010; C1713; C1889; J0171; J1100; J1170; J2405; J2704; J3010; J3490; S0020

== ENCOUNTER 2023-11-07 14:18 | Inpatient (IN) | payer MEDICARE, OTHER ==
[2023-11-07 15:23] LABS: #Basophils 0.07 10x3/uL (0.0-0.2); %Basophils 0.7 % (0.0-1.0); %Eosinophils 0.5 % (0.0-10.0); %Lymphocytes 5.4 % (21.0-51.0); %Monocytes 8.1 % (0.0-10.0); %Neutrophils 84.6 % (42.0-75.0); Hematocrit 38.5 % (42.0-52.0); Hemoglobin 12.5 g/dL (14.0-18.0); Mean Corpuscular HGB CONC 32.5 g/dL (32.0-36.0); Mean Corpuscular Hemoglobin 29.3 pg (27.0-31.0); Mean Corpuscular Volume 90.4 fL (78.0-98.0); Mean Platelet Volume 9.8 fL (7.4-10.4); Platelet Count 156 10x3/uL (130-400); RBC Distribution Width 15.3 % (11.5-14.5); Red Blood Cell (RBC) Count 4.26 mill/uL (4.70-6.10)
[2023-11-07 15:49] LABS: Anion Gap 13 mmol/L (10-20); BUN (Urea Nitrogen) 23 mg/dL (8.4-25.7); CK (CPK) 74 U/L (30-200); Calc. Creatinine Clearance 0 mL/min (70-130); Calcium 9.4 mg/dL (7.8-10.44); Carbon Dioxide 25 mmol/L (23-31); Chloride 105 mmol/L (98-107); Estimated GFR 60; Glucose 104 mg/dL (83-110); Potassium 4.6 mmol/L (3.5-5.1); Sodium 138 mmol/L (136-145)
[2023-11-07 16:21] LABS: ALT (SGPT) 60 U/L (8-55); AST (SGOT) 60 U/L (5-34); Albumin 3.4 g/dL (3.4-4.8); Alkaline Phosphatase 44 U/L (40-110); Bilirubin, Direct 0.5 mg/dL (0.1-0.3); Bilirubin, Total 1.1 mg/dL (0.2-1.2); Protein, Total 6.3 g/dL (5.8-8.1)
[2023-11-07 16:22] LABS: Troponin I 0.024 ng/mL (< 0.028)
[2023-11-07] MEDS ORDERED: Morphine 4 MG/ML VIAL ONE (16:42)
[2023-11-07] MEDS ORDERED: Acetaminophen/Codeine 30-300mg Tablet ONE (16:48)
[2023-11-07] MEDS ORDERED: Acetaminophen 650 MG/20.3 ML UDCUP ONE (16:48)
[2023-11-07] MEDS ORDERED: Lidocaine 4% Patch ONE (17:15)
[2023-11-07] MEDS ORDERED: hydrALAZINE 20 MG/ML VIAL SLOW IVP PRN (17:25)
[2023-11-07] MEDS ORDERED: Dextrose 50% Abboject 50 ML SYRINGE SLOW IVP PRN (17:25)
[2023-11-07] MEDS ORDERED: Ipratropium/Albuterol 3 ML NEB NEB PRN (17:25)
[2023-11-07] MEDS ORDERED: Glucagon 1 MG/ML KIT IM PRN (17:25)
[2023-11-07] MEDS ORDERED: Ondansetron PF 4 MG/2 ML Vial IVP PRN (17:25)
[2023-11-07] MEDS ORDERED: Dextrose 5% in Water 1,000 ML IV PRN (17:25)
[2023-11-07] MEDS ORDERED: Ondansetron ODT 4 MG TAB PO PRN (17:25)
[2023-11-07] MEDS ORDERED: Rib Fracture Protocol IV SCH (17:30)
[2023-11-07 18:08] LABS: Bacteria/HPF None Seen HPF (None Seen); Bilirubin Negative (Negative); Blood, Urine 2+ (Negative); CAUTI Indications for Culture Pelvic or flank pain; Clarity Clear (Clear); Glucose, Urine (Dipstick) Normal (Negative); Ketone, Urine Negative (Negative); Leukocyte Negative Leu/uL (Negative); Nitrite Negative (Negative); Protein, Urine (Dipstick) 30 mg/dL (Neg-Trace); RBC/HPF 21-50 HPF (0-3); Squamous Epithelial 0-3 HPF (0-3); Urobilinogen Normal mg/dL (Less than 2); WBC/HPF 0-3 HPF (0-3)
[2023-11-07 18:12] LABS: Urine Culture Reflex No No
[2023-11-07] MEDS: Famotidine 20 MG TAB PO SCH (20:41)
[2023-11-07] MEDS ORDERED: Ketorolac Tromethamine 30 MG (1 mL) VIAL IVP PRN (20:59)
[2023-11-07 21:05] VITALS: BMI 25.7
[2023-11-07] MEDS: Acetaminophen/Codeine 30-300mg Tablet PO PRN (21:25)
[2023-11-07] MEDS ORDERED: Ketorolac Tromethamine 30 MG (1 mL) VIAL IVP SCH (23:59)
[2023-11-08] MEDS: Acetaminophen 650 MG Suppository PR SCH (01:53)
[2023-11-08] MEDS: Transdermal Patch Removal TOP SCH ×2 (05:00→20:03)
[2023-11-08 05:22] LABS: #Basophils 0.05 10x3/uL (0.0-0.2); %Basophils 0.6 % (0.0-1.0); %Eosinophils 2.9 % (0.0-10.0); %Lymphocytes 8.2 % (21.0-51.0); %Monocytes 9.1 % (0.0-10.0); %Neutrophils 78.8 % (42.0-75.0); Hematocrit 34.4 % (42.0-52.0); Hemoglobin 11.1 g/dL (14.0-18.0); Mean Corpuscular HGB CONC 32.3 g/dL (32.0-36.0); Mean Corpuscular Hemoglobin 29.7 pg (27.0-31.0); Platelet Count 137 10x3/uL (130-400); RBC Distribution Width 15.4 % (11.5-14.5); Red Blood Cell (RBC) Count 3.74 mill/uL (4.70-6.10)
[2023-11-08 05:44] LABS: ALT (SGPT) 85 U/L (8-55); AST (SGOT) 79 U/L (5-34); Albumin 2.9 g/dL (3.4-4.8); Alkaline Phosphatase 39 U/L (40-110); BUN (Urea Nitrogen) 26 mg/dL (8.4-25.7); Bilirubin, Total 0.9 mg/dL (0.2-1.2); Calc. Creatinine Clearance 51 mL/min (70-130); Carbon Dioxide 26 mmol/L (23-31); Estimated GFR 58; Globulin 2.8 g/dL (2.4-3.5); Glucose 94 mg/dL (83-110); Protein, Total 5.7 g/dL (5.8-8.1)
[2023-11-08 06:02] LABS: Anion Gap 13 mmol/L (10-20); Chloride 106 mmol/L (98-107); Potassium 4.2 mmol/L (3.5-5.1); Sodium 139 mmol/L (136-145)
[2023-11-08] MEDS ORDERED: Clindamycin/D5W 900 MG in Premix 1 BAG IVPB SCH (07:30)
[2023-11-08] MEDS: Amiodarone 200 MG TAB PO SCH (08:49)
[2023-11-08] MEDS ORDERED: PROPOFOL 20 ML ONE (11:43)
[2023-11-08] MEDS ORDERED: fentaNYL PF 100 MCG/2 ML SYRINGE ONE (12:12)
[2023-11-08] MEDS ORDERED: Rocuronium Bromide 10 MG/ML (10ML VIAL) ONE (12:16)
[2023-11-08] MEDS ORDERED: Lidocaine 2% PF 5 ML VIAL ONE (12:16)
[2023-11-08] MEDS ORDERED: Clindamycin/D5W 900 mg/50 ml Premix Bag ONE (12:30)
[2023-11-08] MEDS ORDERED: Ondansetron PF 4 MG/2 ML Vial ONE (13:03)
[2023-11-08] MEDS ORDERED: Dexamethasone 4 mg/ml Vial ONE (13:03)
[2023-11-08] MEDS ORDERED: SUGAMMADEX SODIUM 200 MG/2 ML VIAL ONE (13:15)
[2023-11-08] MEDS ORDERED: HYDROmorphone 2 MG/ML VIAL ONE (13:15)
[2023-11-08] MEDS ORDERED: PHENYLEPHRINE-NS 100 MCG/ML 10 ML SYRINGE ONE (13:52)
[2023-11-08] MEDS: Lidocaine 4% Patch TD SCH (15:10)
[2023-11-08] MEDS: TETANUS, DIPHTHERIA TOX,ADULT (TDVAX) 0.5 ML VIAL IM ONE (15:11)
[2023-11-08] MEDS ORDERED: AFRIN NASAL MIST 15 ML BOT NS PRN (18:22)
[2023-11-08] MEDS ORDERED: AFRIN NASAL MIST 15 ML BOT FS PRN (18:23)
[2023-11-08] MEDS: Clindamycin/D5W 900 MG in Premix 1 BAG IVPB SCH (18:52)
[2023-11-08] MEDS: tiZANidine HCl 4 MG TAB PO SCH (20:02)
[2023-11-08] MEDS: Amlodipine 10 MG TAB PO SCH (20:02)
[2023-11-08] MEDS: Oxymetazoline HCl 0.05% (30 ML BOT) FS PRN (23:33)
[2023-11-09 08:29] LABS: #Basophils Less than 0.03 10x3/uL (0.0-0.2); #Eosinphils Less than 0.03 10x3/uL (0.0-0.7); %Basophils 0.2 % (0.0-1.0); %Eosinophils 0.1 % (0.0-10.0); %Lymphocytes 5.3 % (21.0-51.0); %Monocytes 11.7 % (0.0-10.0); Hematocrit 26.1 % (42.0-52.0); Hemoglobin 8.4 g/dL (14.0-18.0); Mean Corpuscular HGB CONC 32.1 g/dL (32.0-36.0); Mean Corpuscular Hemoglobin 29.5 pg (27.0-31.0); Mean Platelet Volume 10.7 fL (7.4-10.4); Platelet Count 120 10x3/uL (130-400); RBC Distribution Width 15.7 % (11.5-14.5); Red Blood Cell (RBC) Count 2.88 mill/uL (4.70-6.10)
[2023-11-09 08:47] LABS: Anion Gap 12 mmol/L (10-20); BUN (Urea Nitrogen) 40 mg/dL (8.4-25.7); Calc. Creatinine Clearance 42 mL/min (70-130); Calcium 8.4 mg/dL (7.8-10.44); Carbon Dioxide 26 mmol/L (23-31); Chloride 103 mmol/L (98-107); Estimated GFR 47; Glucose 133 mg/dL (83-110); Potassium 4.6 mmol/L (3.5-5.1); Sodium 136 mmol/L (136-145)
[2023-11-09] MEDS: HYDROcodone/Acetaminophen 5/325 mg Tablet PO SCH (10:13)
[2023-11-09] MEDS: Sodium Chloride 0.9% 500 ML IV SCH (10:15)
[2023-11-09] MEDS: Acetaminophen 325 MG TAB PO SCH (13:10)
[2023-11-09] MEDS: Methocarbamol 500 MG TAB PO PRN (13:10)
[2023-11-09] MEDS: HYDROcodone/Acetaminophen 5/325 mg Tablet PO PRN (15:12)
[2023-11-09] MEDS: Apixaban 5 MG TAB PO SCH (20:02)
[2023-11-09] MEDS: Atorvastatin Calcium 20 MG TAB PO SCH (20:02)
[2023-11-10 06:32] LABS: #Basophils Less than 0.03 10x3/uL (0.0-0.2); %Basophils 0.3 % (0.0-1.0); %Eosinophils 2.9 % (0.0-10.0); %Lymphocytes 8.9 % (21.0-51.0); %Monocytes 11.3 % (0.0-10.0); Hematocrit 26.5 % (42.0-52.0); Hemoglobin 8.5 g/dL (14.0-18.0); Mean Corpuscular HGB CONC 32.1 g/dL (32.0-36.0); Mean Corpuscular Hemoglobin 29.3 pg (27.0-31.0); Mean Corpuscular Volume 91.4 fL (78.0-98.0); Mean Platelet Volume 10.7 fL (7.4-10.4); Platelet Count 125 10x3/uL (130-400); RBC Distribution Width 15.9 % (11.5-14.5)
[2023-11-10 06:39] LABS: Anion Gap 10 mmol/L (10-20); BUN (Urea Nitrogen) 42 mg/dL (8.4-25.7); Calc. Creatinine Clearance 45 mL/min (70-130); Calcium 8.6 mg/dL (7.8-10.44); Carbon Dioxide 26 mmol/L (23-31); Chloride 106 mmol/L (98-107); Estimated GFR 51; Glucose 98 mg/dL (83-110); Potassium 4.3 mmol/L (3.5-5.1); Sodium 138 mmol/L (136-145)
[2023-11-10] MEDS: Pantoprazole DR 40 MG TAB PO SCH (08:59)
[2023-11-11 06:26] LABS: #Basophils Less than 0.03 10x3/uL (0.0-0.2); %Basophils 0.3 % (0.0-1.0); %Eosinophils 3.8 % (0.0-10.0); %Lymphocytes 11.8 % (21.0-51.0); %Monocytes 13.5 % (0.0-10.0); %Neutrophils 70.1 % (42.0-75.0); Hematocrit 23.8 % (42.0-52.0); Hemoglobin 7.6 g/dL (14.0-18.0); Mean Corpuscular HGB CONC 31.9 g/dL (32.0-36.0); Mean Corpuscular Hemoglobin 29.5 pg (27.0-31.0); Mean Corpuscular Volume 92.2 fL (78.0-98.0); Mean Platelet Volume 10.8 fL (7.4-10.4); Platelet Count 131 10x3/uL (130-400); RBC Distribution Width 15.9 % (11.5-14.5); Red Blood Cell (RBC) Count 2.58 mill/uL (4.70-6.10)
[2023-11-11 06:58] LABS: Anion Gap 9 mmol/L (10-20); BUN (Urea Nitrogen) 38 mg/dL (8.4-25.7); Calc. Creatinine Clearance 48 mL/min (70-130); Calcium 8.2 mg/dL (7.8-10.44); Carbon Dioxide 25 mmol/L (23-31); Chloride 105 mmol/L (98-107); Estimated GFR 55; Glucose 106 mg/dL (83-110); Potassium 3.7 mmol/L (3.5-5.1); Sodium 135 mmol/L (136-145)
[2023-11-11] MEDS: Docusate 100 MG CAP PO PRN (20:31)
[2023-11-11] MEDS: Polyethylene Glycol 3350 17 GM Packet PO PRN (20:45)
[2023-11-12] MEDS: Ibuprofen 600 MG TAB PO SCH
[2023-11-12 09:30] LABS: #Basophils 0.03 10x3/uL (0.0-0.2); %Basophils 0.5 % (0.0-1.0); %Eosinophils 4.4 % (0.0-10.0); %Lymphocytes 16.6 % (21.0-51.0); %Monocytes 16.2 % (0.0-10.0); %Neutrophils 61.2 % (42.0-75.0); Mean Corpuscular Hemoglobin 29.1 pg (27.0-31.0); Mean Corpuscular Volume 90.9 fL (78.0-98.0); Platelet Count 157 10x3/uL (130-400); RBC Distribution Width 15.8 % (11.5-14.5); Red Blood Cell (RBC) Count 2.75 mill/uL (4.70-6.10)
[2023-11-12] MEDS: Ferrous Sulfate 325 MG TAB PO SCH (16:39)
[2023-11-12] MEDS: Apixaban 5 MG TAB PO SCH (20:59)
[2023-11-12] MEDS: Ascorbic Acid 500 mg Chewable Tablet PO SCH (21:00)
[2023-11-13 06:01] LABS: #Basophils 0.04 10x3/uL (0.0-0.2); %Basophils 0.9 % (0.0-1.0); %Eosinophils 4.6 % (0.0-10.0); %Lymphocytes 18.2 % (21.0-51.0); %Monocytes 15.4 % (0.0-10.0); %Neutrophils 59.4 % (42.0-75.0); Hematocrit 24.3 % (42.0-52.0); Hemoglobin 7.9 g/dL (14.0-18.0); Mean Corpuscular HGB CONC 32.5 g/dL (32.0-36.0); Mean Corpuscular Hemoglobin 29.3 pg (27.0-31.0); Platelet Count 186 10x3/uL (130-400); RBC Distribution Width 15.9 % (11.5-14.5)
[2023-11-13 14:27] VITALS: TEMP 97.7
[2023-11-13 14:30] VITALS: BP 113/55
== END 2023-11-13 15:00 | DRG 522 ==
LOC: ERS 14:18 → SURG B 17:25
PROVIDERS: ADMIT Surgery; ATTEND Surgery
PROC: 0SRR0JA Replacement of Right Hip Joint, Femoral Surface with Synthetic Substitute, Uncemented, Open Approach (ICD-10-PCS; principal; 2023-11-08)
DX: S72.001A Fracture of unspecified part of neck of right femur, initial encounter for closed fracture (principal); S22.41XA Multiple fractures of ribs, right side, initial encounter for closed fracture; J98.11 Atelectasis; D62 Acute posthemorrhagic anemia; N17.9 Acute kidney failure, unspecified; I10 Essential (primary) hypertension; M54.9 Dorsalgia, unspecified; G89.29 Other chronic pain; Z98.890 Other specified postprocedural states; Z87.891 Personal history of nicotine dependence; Z88.0 Allergy status to penicillin; Z88.1 Allergy status to other antibiotic agents; Z88.2 Allergy status to sulfonamides; Z79.899 Other long term (current) drug therapy; W19.XXXA Unspecified fall, initial encounter; I48.0 Paroxysmal atrial fibrillation
CPT/HCPCS: 36415; 70450; 71045; 71250; 72125; 72170; 80048; 80053; 80076; 81001; 82550; 84443; 84484; 85025; 93005; C1713; C1776; G0390; J1100; J1170; J2001; J2272; J2405; J2704; J3490; J7030

== ENCOUNTER 2024-02-14 11:20 | Inpatient (IN) | payer MEDICARE ==
[2024-02-14 11:46] LABS: #Basophils 0.04 10x3/uL (0.0-0.2); %Basophils 0.9 % (0.0-1.0); %Eosinophils 3.6 % (0.0-10.0); %Lymphocytes 23.6 % (21.0-51.0); %Monocytes 10.8 % (0.0-10.0); %Neutrophils 60.7 % (42.0-75.0); Hematocrit 30.2 % (42.0-52.0); Hemoglobin 9.1 g/dL (14.0-18.0); Mean Corpuscular HGB CONC 30.1 g/dL (32.0-36.0); Mean Corpuscular Hemoglobin 24.7 pg (27.0-31.0); Mean Corpuscular Volume 82.1 fL (78.0-98.0); Mean Platelet Volume 9.7 fL (7.4-10.4); Platelet Count 177 10x3/uL (130-400); RBC Distribution Width 16.5 % (11.5-14.5); Red Blood Cell (RBC) Count 3.68 mill/uL (4.70-6.10)
[2024-02-14] MEDS ORDERED: HYDROmorphone 0.5 MG/0.5 ML SYRINGE ONE (11:52)
[2024-02-14] MEDS ORDERED: Boostrix 0.5 ML (Tdap) VIAL (>/=7 yrs of age) ONE (11:54)
[2024-02-14 12:03] LABS: ALT (SGPT) 13 U/L (8-55); AST (SGOT) 17 U/L (5-34); Albumin 2.9 g/dL (3.4-4.8); Alkaline Phosphatase 52 U/L (40-110); Anion Gap 15 mmol/L (10-20); BUN (Urea Nitrogen) 25 mg/dL (8.4-25.7); Bilirubin, Total 0.4 mg/dL (0.2-1.2); Calc. Creatinine Clearance 0 mL/min (70-130); Calcium 8.3 mg/dL (7.8-10.44); Carbon Dioxide 22 mmol/L (23-31); Chloride 107 mmol/L (98-107); Estimated GFR 51; Globulin 2.7 g/dL (2.4-3.5); Glucose 127 mg/dL (83-110); Potassium 4.3 mmol/L (3.5-5.1); Protein, Total 5.6 g/dL (5.8-8.1); Sodium 140 mmol/L (136-145)
[2024-02-14 12:04] LABS: INR-International Normal Ratio 2.1; Prothrombin Time 23.8 sec (12.0-14.7)
[2024-02-14] MEDS ORDERED: Ondansetron PF 4 MG/2 ML Vial ONE (13:05)
[2024-02-14] MEDS ORDERED: Ondansetron PF 4 MG/2 ML Vial IVP PRN (15:10)
[2024-02-14] MEDS ORDERED: hydrALAZINE 20 MG/ML VIAL SLOW IVP PRN (15:10)
[2024-02-14] MEDS ORDERED: TETANUS, DIPHTHERIA TOX,ADULT (TDVAX) 0.5 ML VIAL IM ONE (15:10)
[2024-02-14] MEDS ORDERED: Methocarbamol 1 GM in Sodium Chloride 0.9% 100 ML IVPB PRN (15:15)
[2024-02-14] MEDS: Acetaminophen/Codeine 30-300mg Tablet PO PRN (16:39)
[2024-02-14] MEDS: Citalopram 10 MG TAB PO SCH (21:14)
[2024-02-14] MEDS: Venlafaxine 75 MG TAB PO SCH (21:14)
[2024-02-14] MEDS: Morphine 2 MG/ML VIAL SLOW IVP PRN (21:15)
[2024-02-14] MEDS: Atorvastatin Calcium 40 MG TAB PO SCH (21:15)
[2024-02-15 05:49] LABS: #Basophils 0.03 10x3/uL (0.0-0.2); %Basophils 0.4 % (0.0-1.0); %Eosinophils 1.9 % (0.0-10.0); %Lymphocytes 13.9 % (21.0-51.0); %Monocytes 13.8 % (0.0-10.0); %Neutrophils 69.7 % (42.0-75.0); Hematocrit 27.7 % (42.0-52.0); Hemoglobin 8.4 g/dL (14.0-18.0); Mean Corpuscular HGB CONC 30.3 g/dL (32.0-36.0); Mean Corpuscular Hemoglobin 24.4 pg (27.0-31.0); Mean Corpuscular Volume 80.5 fL (78.0-98.0); Platelet Count 165 10x3/uL (130-400); RBC Distribution Width 16.7 % (11.5-14.5); Red Blood Cell (RBC) Count 3.44 mill/uL (4.70-6.10)
[2024-02-15 06:11] LABS: Anion Gap 11 mmol/L (10-20); BUN (Urea Nitrogen) 20 mg/dL (8.4-25.7); Calc. Creatinine Clearance 60 mL/min (70-130); Calcium 8.3 mg/dL (7.8-10.44); Carbon Dioxide 25 mmol/L (23-31); Chloride 106 mmol/L (98-107); Estimated GFR 72; Glucose 107 mg/dL (83-110); Potassium 4.1 mmol/L (3.5-5.1); Sodium 138 mmol/L (136-145)
[2024-02-15] MEDS: FLU (Fluad Triv) TS24-25 (65UP)/MF59C/PF 45 MCG/0.5 ML Syringe IM ONE (09:08)
[2024-02-15] MEDS: Amiodarone 200 MG TAB PO SCH (09:12)
[2024-02-15] MEDS: Oxybutynin ER 5 MG TAB PO SCH (09:12)
[2024-02-15] MEDS: Pantoprazole DR 40 MG TAB PO SCH (09:13)
[2024-02-15] MEDS ORDERED: Clindamycin/D5W 900 MG in Premix 1 BAG IVPB SCH (10:00)
[2024-02-16] MEDS ORDERED: Clindamycin/D5W 900 mg/50 ml Premix Bag ONE (08:03)
[2024-02-16] MEDS ORDERED: Rocuronium Bromide 10 MG/ML (10ML VIAL) ONE (08:20)
[2024-02-16] MEDS ORDERED: ePHEDrine Sulfate 50 MG/10 ML VIAL ONE (08:20)
[2024-02-16] MEDS ORDERED: Calcium Chloride 1 GM/10 ML Abboject SYRINGE ONE (08:20)
[2024-02-16] MEDS ORDERED: Ondansetron HCl/PF 4 MG/2 ML Vial IVP PRN (10:57)
[2024-02-16] MEDS ORDERED: Promethazine HCl 25 MG/ML VIAL IM PRN (10:57)
[2024-02-16 11:17] LABS: #Basophils 0.08 10x3/uL (0.0-0.2); %Basophils 0.6 % (0.0-1.0); %Eosinophils 1.4 % (0.0-10.0); %Lymphocytes 22.3 % (21.0-51.0); %Monocytes 13.1 % (0.0-10.0); %Neutrophils 62.1 % (42.0-75.0); Hematocrit 31.7 % (42.0-52.0); Hemoglobin 9.3 g/dL (14.0-18.0); Mean Corpuscular HGB CONC 29.3 g/dL (32.0-36.0); Mean Corpuscular Hemoglobin 25.7 pg (27.0-31.0); Mean Corpuscular Volume 87.6 fL (78.0-98.0); Mean Platelet Volume 9.9 fL (7.4-10.4); Platelet Count 169 10x3/uL (130-400); RBC Distribution Width 16.5 % (11.5-14.5); Red Blood Cell (RBC) Count 3.62 mill/uL (4.70-6.10)
[2024-02-16 11:33] LABS: Actual Bicarbonate (HCO3a) 18.7 mEq/L (22-28); Base Excess (BEa) -8.6 mEq/L (-2.0 to +3.0); CO2 Tension 46.1 mmHg (35.0-45.0); Calcium, Ionized (arterial) 1.18 mmol/L (1.12-1.30); Carboxyhemoglobin (COHb) 0.8 gm% (0.0-3.0); Hematocrit-ABG 31 % (42.0-52.0); Hemoglobin (Hb) 10.4 g/dL (14.0-18.0); Potassium - ABG Lab 4.75 mmol/L (3.70-5.30); pH, Arterial 7.226 (7.35-7.45)
[2024-02-16 11:34] LABS: Puncture Site Left Radial artery
[2024-02-16 11:35] LABS: ALV-art Gradient 298.175 mmHg (0-20)
[2024-02-16] MEDS ORDERED: Phenylephrine 40 MG/NS 250 ML 40 MG in Premix 1 BAG IVPB SCH (12:00)
[2024-02-16 12:01] LABS: Anion Gap 17 mmol/L (10-20); BUN (Urea Nitrogen) 18 mg/dL (8.4-25.7); Calc. Creatinine Clearance 56 mL/min (70-130); Calcium 8.3 mg/dL (7.8-10.44); Carbon Dioxide 17 mmol/L (23-31); Chloride 107 mmol/L (98-107); Estimated GFR 66; Glucose 151 mg/dL (83-110); Potassium 4.5 mmol/L (3.5-5.1); Sodium 136 mmol/L (136-145)
[2024-02-16] MEDS ORDERED: Norepinephrine 4 MG/4 ML VIAL ONE (12:02)
[2024-02-16] MEDS ORDERED: Lidocaine 1% (PF) 30 ML VIAL ONE (12:12)
[2024-02-16] MEDS ORDERED: Etomidate 40 MG (20 mL) VIAL ONE (12:15)
[2024-02-16] MEDS ORDERED: SUCCINYLCHOLINE/SOD CL,ISO/PF 200 MG/10 ML SYRINGE FS ONE (12:17)
[2024-02-16 12:57] LABS: Base Excess (BEa) -8.7 mEq/L (-2.0 to +3.0); CO2 Tension 36.1 mmHg (35.0-45.0); Calcium, Ionized (arterial) 1.13 mmol/L (1.12-1.30); Carboxyhemoglobin (COHb) 0.5 gm% (0.0-3.0); Hematocrit-ABG 30 % (42.0-52.0); Hemoglobin (Hb) 10.2 g/dL (14.0-18.0); O2 Tension (PaO2), arterial 168.1 mmHg (> 60.0); Potassium - ABG Lab 4.78 mmol/L (3.70-5.30); pH, Arterial 7.292 (7.35-7.45)
[2024-02-16] MEDS ORDERED: fentaNYL 50 mcg/mL 1 mL Vial ONE (12:59)
[2024-02-16 13:01] LABS: ALV-art Gradient 214.575 mmHg (0-20); Puncture Site Left Brachial artery
[2024-02-16] MEDS ORDERED: Fentanyl CADD 100 ML IV SCH (13:15)
[2024-02-16] MEDS ORDERED: Morphine 2 MG/ML VIAL SLOW IVP PRN (13:45)
[2024-02-16] MEDS ORDERED: Propofol BOLUS 1,000 MG/100 ML VIAL IV PRN (13:45)
[2024-02-16] MEDS ORDERED: Propofol 1,000 MG/100 ML VIAL IV PRN (13:45)
[2024-02-16] MEDS ORDERED: DISCONTINUE PREVIOUS NARCOTIC PAIN MEDICATIONS AND BENZODIAZEPINES FS SCH (13:45)
[2024-02-16] MEDS ORDERED: Fentanyl BOLUS 250 ML IVPB PRN (13:45)
[2024-02-16] MEDS: Fentanyl CADD 100 ML IV SCH (14:01)
[2024-02-16] MEDS: Ventilator Sedation Protocol 1 EACH FS ONE (14:53)
[2024-02-16 15:48] LABS: Hematocrit 31.7 % (42.0-52.0); Hemoglobin 9.9 g/dL (14.0-18.0)
[2024-02-16] MEDS: Clindamycin/D5W 900 MG in Premix 1 BAG IVPB SCH (15:55)
[2024-02-16] MEDS: Lactated Ringer's 1,000 ML IV SCH (16:12)
[2024-02-16] MEDS: Lorazepam 2 MG/ML VIAL SLOW IVP PRN (20:18)
[2024-02-17 04:31] LABS: Hematocrit 29.3 % (42.0-52.0); Hemoglobin 9.1 g/dL (14.0-18.0); Mean Corpuscular HGB CONC 31.1 g/dL (32.0-36.0); Mean Corpuscular Hemoglobin 25.5 pg (27.0-31.0); Mean Corpuscular Volume 82.1 fL (78.0-98.0); Mean Platelet Volume 10.8 fL (7.4-10.4); Platelet Count 163 10x3/uL (130-400); RBC Distribution Width 16.4 % (11.5-14.5); Red Blood Cell (RBC) Count 3.57 mill/uL (4.70-6.10)
[2024-02-17 04:50] LABS: ALT (SGPT) 1392 U/L (8-55); AST (SGOT) 2489 U/L (5-34); Albumin 2.2 g/dL (3.4-4.8); Alkaline Phosphatase 97 U/L (40-110); Anion Gap 16 mmol/L (10-20); BUN (Urea Nitrogen) 27 mg/dL (8.4-25.7); Calc. Creatinine Clearance 31 mL/min (70-130); Calcium 7.9 mg/dL (7.8-10.44); Carbon Dioxide 17 mmol/L (23-31); Chloride 107 mmol/L (98-107); Estimated GFR 32; Globulin 2.5 g/dL (2.4-3.5); Glucose 91 mg/dL (83-110); Potassium 5.1 mmol/L (3.5-5.1); Protein, Total 4.7 g/dL (5.8-8.1); Sodium 135 mmol/L (136-145)
[2024-02-17 06:49] LABS: Band 15 % (5-11); Burr Cells SLIGHT = 2-5 cells HPF (0-1); Lymphocytes 1 % (21-51); Macrocytosis SLIGHT = 6-15 cells HPF (0-5); Monocytes 5 % (0-10); Neutrophil 79 % (42-75); Ovalocytes SLIGHT = 2-5 cells HPF (0-1); Platelet Adequacy Comment Platelets Normal; Polychromasia SLIGHT = 2-3 cells HPF (0-2)
[2024-02-17 07:42] LABS: Actual Bicarbonate (HCO3a) 20.1 mEq/L (22-28); CO2 Tension 32.7 mmHg (35.0-45.0); Calcium, Ionized (arterial) 1.08 mmol/L (1.12-1.30); Carboxyhemoglobin (COHb) 0.5 gm% (0.0-3.0); Hematocrit-ABG 27 % (42.0-52.0); Hemoglobin (Hb) 9.1 g/dL (14.0-18.0); O2 Tension (PaO2), arterial 211.6 mmHg (> 60.0); Potassium - ABG Lab 5.09 mmol/L (3.70-5.30); pH, Arterial 7.407 (7.35-7.45)
[2024-02-17 07:45] LABS: ALV-art Gradient 175.325 mmHg (0-20); Puncture Site Right Radial artery
[2024-02-17] MEDS: Pantoprazole 40 MG VIAL IVP SCH (09:10)
[2024-02-17] MEDS: NOREPINEPHRINE 8 MG/250 ML-D5W 250 ML IVPB SCH (09:10)
[2024-02-17] MEDS: Dexmedetomidine In 0.9 % NaCl 100 ML IV SCH (09:10)
[2024-02-18 04:39] LABS: ALT (SGPT) 942 U/L (8-55); AST (SGOT) 1053 U/L (5-34); Alkaline Phosphatase 86 U/L (40-110); Anion Gap 15 mmol/L (10-20); BUN (Urea Nitrogen) 42 mg/dL (8.4-25.7); Bilirubin, Total 0.9 mg/dL (0.2-1.2); Calc. Creatinine Clearance 26 mL/min (70-130); Calcium 7.9 mg/dL (7.8-10.44); Carbon Dioxide 19 mmol/L (23-31); Chloride 106 mmol/L (98-107); Estimated GFR 26; Globulin 2.6 g/dL (2.4-3.5); Glucose 88 mg/dL (83-110); Potassium 5.1 mmol/L (3.5-5.1); Protein, Total 4.6 g/dL (5.8-8.1); Sodium 135 mmol/L (136-145)
[2024-02-18 05:03] LABS: Hematocrit 24.3 % (42.0-52.0); Hemoglobin 7.6 g/dL (14.0-18.0); Mean Corpuscular HGB CONC 31.3 g/dL (32.0-36.0); Mean Corpuscular Hemoglobin 25.9 pg (27.0-31.0); Mean Corpuscular Volume 82.9 fL (78.0-98.0); Mean Platelet Volume 9.7 fL (7.4-10.4); Platelet Count 137 10x3/uL (130-400); RBC Distribution Width 17.2 % (11.5-14.5); Red Blood Cell (RBC) Count 2.93 mill/uL (4.70-6.10)
[2024-02-18 06:16] LABS: Band 8 % (5-11); Burr Cells SLIGHT = 2-5 cells HPF (0-1); Eosinophils 1 % (0-10); Hypochromia SLIGHT = 6-15 cells HPF (0-5); Large Platelets 2.9 % (0-5); Lymphocytes 12 % (21-51); Monocytes 3 % (0-10); Neutrophil 76 % (42-75); Platelet Adequacy Comment Platelets Normal; Poikilocytosis SLIGHT = 6-15 cells HPF (0-5); Polychromasia SLIGHT = 2-3 cells HPF (0-2); Smudge Cells 14.7 %
[2024-02-18 07:32] LABS: #Basophils Less than 0.03 10x3/uL (0.0-0.2); %Basophils 0.2 % (0.0-1.0); %Eosinophils 0.6 % (0.0-10.0); %Lymphocytes 6.7 % (21.0-51.0); %Monocytes 9.6 % (0.0-10.0); %Neutrophils 82.4 % (42.0-75.0); Hematocrit 22.9 % (42.0-52.0); Hemoglobin 7.2 g/dL (14.0-18.0); Mean Corpuscular HGB CONC 31.4 g/dL (32.0-36.0); Mean Corpuscular Hemoglobin 25.9 pg (27.0-31.0); Mean Corpuscular Volume 82.4 fL (78.0-98.0); Mean Platelet Volume 9.5 fL (7.4-10.4); Platelet Count 142 10x3/uL (130-400); RBC Distribution Width 17.2 % (11.5-14.5); Red Blood Cell (RBC) Count 2.78 mill/uL (4.70-6.10)
[2024-02-18 07:52] LABS: Anion Gap 14 mmol/L (10-20); BUN (Urea Nitrogen) 42 mg/dL (8.4-25.7); Calc. Creatinine Clearance 30 mL/min (70-130); Calcium 7.8 mg/dL (7.8-10.44); Carbon Dioxide 20 mmol/L (23-31); Chloride 106 mmol/L (98-107); Estimated GFR 30; Glucose 86 mg/dL (83-110); Potassium 4.8 mmol/L (3.5-5.1); Sodium 135 mmol/L (136-145)
[2024-02-19 05:13] LABS: #Basophils Less than 0.03 10x3/uL (0.0-0.2); %Basophils 0.3 % (0.0-1.0); %Eosinophils 1.5 % (0.0-10.0); %Lymphocytes 9.5 % (21.0-51.0); %Monocytes 9.9 % (0.0-10.0); %Neutrophils 78.3 % (42.0-75.0); Hematocrit 23.2 % (42.0-52.0); Hemoglobin 7.6 g/dL (14.0-18.0); Mean Corpuscular HGB CONC 32.8 g/dL (32.0-36.0); Mean Corpuscular Hemoglobin 26.9 pg (27.0-31.0); Mean Platelet Volume 10.1 fL (7.4-10.4); Platelet Count 129 10x3/uL (130-400); RBC Distribution Width 17.5 % (11.5-14.5); Red Blood Cell (RBC) Count 2.83 mill/uL (4.70-6.10)
[2024-02-19 05:33] LABS: ALT (SGPT) 527 U/L (8-55); AST (SGOT) 366 U/L (5-34); Alkaline Phosphatase 74 U/L (40-110); Anion Gap 13 mmol/L (10-20); BUN (Urea Nitrogen) 45 mg/dL (8.4-25.7); Bilirubin, Total 1.4 mg/dL (0.2-1.2); Calc. Creatinine Clearance 48 mL/min (70-130); Carbon Dioxide 22 mmol/L (23-31); Chloride 108 mmol/L (98-107); Estimated GFR 53; Globulin 2.7 g/dL (2.4-3.5); Glucose 79 mg/dL (83-110); Potassium 4.4 mmol/L (3.5-5.1); Protein, Total 4.7 g/dL (5.8-8.1); Sodium 139 mmol/L (136-145)
[2024-02-19 09:02] LABS: INR-International Normal Ratio 1.6; PTT 40.4 sec (22.9-36.1)
[2024-02-19] MEDS: Ascorbic Acid 500 mg Chewable Tablet PO SCH (13:11)
[2024-02-19] MEDS: Ferrous Sulfate 325 MG TAB PO SCH (13:11)
[2024-02-19] MEDS: Acetaminophen 325 MG TAB PO PRN (13:13)
[2024-02-19 17:41] LABS: #Basophils Less than 0.03 10x3/uL (0.0-0.2); %Basophils 0.2 % (0.0-1.0); %Eosinophils 1.9 % (0.0-10.0); %Lymphocytes 6.3 % (21.0-51.0); %Monocytes 9.9 % (0.0-10.0); %Neutrophils 81.2 % (42.0-75.0); Hematocrit 25.4 % (42.0-52.0); Hemoglobin 8.5 g/dL (14.0-18.0); Mean Corpuscular HGB CONC 33.5 g/dL (32.0-36.0); Mean Corpuscular Hemoglobin 27.8 pg (27.0-31.0); Mean Platelet Volume 9.9 fL (7.4-10.4); Platelet Count 130 10x3/uL (130-400); Red Blood Cell (RBC) Count 3.06 mill/uL (4.70-6.10)
[2024-02-20] MEDS: Lactated Ringer's 1,000 ML IV SCH (01:15)
[2024-02-20 03:40] LABS: #Basophils 0.03 10x3/uL (0.0-0.2); %Basophils 0.5 % (0.0-1.0); %Eosinophils 4.1 % (0.0-10.0); %Lymphocytes 6.9 % (21.0-51.0); Hematocrit 29.1 % (42.0-52.0); Hemoglobin 9.6 g/dL (14.0-18.0); Mean Corpuscular Hemoglobin 27.7 pg (27.0-31.0); Mean Corpuscular Volume 84.1 fL (78.0-98.0); Mean Platelet Volume 9.2 fL (7.4-10.4); Platelet Count 121 10x3/uL (130-400); RBC Distribution Width 17.2 % (11.5-14.5); Red Blood Cell (RBC) Count 3.46 mill/uL (4.70-6.10)
[2024-02-20 06:39] VITALS: BMI 29.2
[2024-02-20] MEDS ORDERED: Non-Formulary Item 1 EACH (Midodrine [Midodrine] 10 MG Tab) PO PRN (07:05)
[2024-02-20] MEDS ORDERED: Midodrine HCl 5 MG TAB PO PRN (08:58)
[2024-02-20] MEDS ORDERED: Non-Formulary Item 1 EACH (Tadalafil [Cialis] 5 MG Tablet) PO SCH (09:00)
[2024-02-20] MEDS ORDERED: Enoxaparin 40 MG (0.4 mL) SYRINGE SC SCH (09:00)
[2024-02-20] MEDS: Apixaban 5 MG TAB PO SCH (09:23)
[2024-02-20 14:18] VITALS: BMI 29.2
[2024-02-20] MEDS ORDERED: Scopolamine 1 mg/72 hour Patch TD SCH (17:15)
[2024-02-20] MEDS: Acetaminophen/Codeine 30-300mg Tablet PO SCH (17:42)
[2024-02-20] MEDS: Scopolamine 1 mg/72 hour Patch TD SCH (17:43)
[2024-02-20] MEDS: Morphine 2 MG/ML VIAL SLOW IVP PRN (20:45)
[2024-02-21 04:33] LABS: #Basophils 0.03 10x3/uL (0.0-0.2); %Basophils 0.5 % (0.0-1.0); %Eosinophils 4.7 % (0.0-10.0); %Lymphocytes 12.9 % (21.0-51.0); %Monocytes 13.9 % (0.0-10.0); %Neutrophils 67.3 % (42.0-75.0); Hematocrit 27.8 % (42.0-52.0); Hemoglobin 9.3 g/dL (14.0-18.0); Mean Corpuscular HGB CONC 33.5 g/dL (32.0-36.0); Mean Corpuscular Volume 83.7 fL (78.0-98.0); Mean Platelet Volume 9.5 fL (7.4-10.4); Platelet Count 137 10x3/uL (130-400); Red Blood Cell (RBC) Count 3.32 mill/uL (4.70-6.10)
[2024-02-21 04:49] LABS: Anion Gap 12 mmol/L (10-20); BUN (Urea Nitrogen) 28 mg/dL (8.4-25.7); Calc. Creatinine Clearance 79 mL/min (70-130); Calcium 7.9 mg/dL (7.8-10.44); Carbon Dioxide 26 mmol/L (23-31); Chloride 106 mmol/L (98-107); Estimated GFR 86; Glucose 82 mg/dL (83-110); Potassium 3.5 mmol/L (3.5-5.1); Sodium 140 mmol/L (136-145)
[2024-02-21 07:55] VITALS: TEMP 97.8
[2024-02-21] MEDS: Pantoprazole DR 40 MG TAB PO SCH (10:44)
[2024-02-21 10:55] VITALS: BP 139/64
== END 2024-02-21 14:13 | DRG 466 ==
LOC: ERS 11:20 → SURG B 16:15 → CCU 02-16 13:27 → IMCU/EMU 02-19 05:10 → 2NO 02-20 20:17
PROVIDERS: ADMIT Surgery; ATTEND Surgery
PROC: 0W9900Z Drainage of Right Pleural Cavity with Drainage Device, Open Approach (ICD-10-PCS; principal; 2024-02-16)
PROC: 0SW90JZ Revision of Synthetic Substitute in Right Hip Joint, Open Approach (ICD-10-PCS; 2024-02-16)
PROC: 30233N1 Transfusion of Nonautologous Red Blood Cells into Peripheral Vein, Percutaneous Approach (ICD-10-PCS; 2024-02-16)
PROC: 4A133R1 Monitoring of Arterial Saturation, Peripheral, Percutaneous Approach (ICD-10-PCS; 2024-02-16)
PROC: 3E033XZ Introduction of Vasopressor into Peripheral Vein, Percutaneous Approach (ICD-10-PCS; 2024-02-16)
PROC: 30233K1 Transfusion of Nonautologous Frozen Plasma into Peripheral Vein, Percutaneous Approach (ICD-10-PCS; 2024-02-18)
DX: S72.001A Fracture of unspecified part of neck of right femur, initial encounter for closed fracture (principal); J93.0 Spontaneous tension pneumothorax; J96.01 Acute respiratory failure with hypoxia; M97.01XA Periprosthetic fracture around internal prosthetic right hip joint, initial encounter; D62 Acute posthemorrhagic anemia; S22.41XA Multiple fractures of ribs, right side, initial encounter for closed fracture; I48.91 Unspecified atrial fibrillation; I10 Essential (primary) hypertension; E78.5 Hyperlipidemia, unspecified; N40.0 Benign prostatic hyperplasia without lower urinary tract symptoms; Z98.890 Other specified postprocedural states; F41.9 Anxiety disorder, unspecified; W18.30XA Fall on same level, unspecified, initial encounter; S09.90XA Unspecified injury of head, initial encounter; Z88.0 Allergy status to penicillin; Z88.2 Allergy status to sulfonamides; Z88.1 Allergy status to other antibiotic agents; Z88.5 Allergy status to narcotic agent; Z79.899 Other long term (current) drug therapy; I95.81 Postprocedural hypotension
CPT/HCPCS: 36415; 36430; 36600; 70450; 71045; 71250; 72170; 80048; 80053; 82805; 85025; 85610; 85730; 86850; 86900; 86901; 87070; 87205; 90715; 93005; 93010; 94002; 94003; 96374; 97139; C1713; C1776; C1889; G0390; J2060; J2272; J2371; J2405; J2470; J2704; J3010; J3490; J7120; P9016; P9059

== ENCOUNTER 2024-04-09 21:54 | Inpatient (IN) | payer MEDICARE ==
[2024-04-09] MEDS ORDERED: Ondansetron PF 4 MG/2 ML Vial ONE ×2 (22:14→23:21)
[2024-04-09 22:30] LABS: Actual Bicarbonate (HCO3v) 25.1 mEq/L (22-28); Base Excess -0.4 mEq/L (-2.0 to +3.0); Chloride (VBG) 100 mmol/L (98-106); Hematocrit-VBG 36 % (42.0-52.0); Hemoglobin (Hb) 12.4 g/dL (12.6-17.4); Potassium (VBG) 3.87 mmol/L (3.70-5.30); Sodium 140 mmol/L (133-146); pH (venous) 7.369 (7.32-7.43)
[2024-04-09 23:00] LABS: #Basophils 0.05 10x3/uL (0.0-0.2); #Eosinophils Less than 0.03 10x3/uL (0.0-0.7); %Basophils 0.4 % (0.0-1.0); %Lymphocytes 7.1 % (21.0-51.0); %Monocytes 8.7 % (0.0-10.0); %Neutrophils 83.3 % (42.0-75.0); Hematocrit 35.8 % (42.0-52.0); Hemoglobin 11.3 g/dL (14.0-18.0); Mean Corpuscular HGB CONC 31.6 g/dL (32.0-36.0); Mean Corpuscular Hemoglobin 27.9 pg (27.0-31.0); Mean Corpuscular Volume 88.4 fL (78.0-98.0); Mean Platelet Volume 10.4 fL (7.4-10.4); Platelet Count 374 10x3/uL (130-400); RBC Distribution Width 22.2 % (11.5-14.5); Red Blood Cell (RBC) Count 4.05 mill/uL (4.70-6.10)
[2024-04-09] MEDS ORDERED: Vancomycin 1 GM/200 ML (FROZEN) BAG ONE (23:22)
[2024-04-09 23:25] LABS: ALT (SGPT) 18 U/L (8-55); AST (SGOT) 45 U/L (5-34); Albumin 2.3 g/dL (3.4-4.8); Alkaline Phosphatase 117 U/L (40-110); Anion Gap 19 mmol/L (10-20); BUN (Urea Nitrogen) 20 mg/dL (8.4-25.7); Bilirubin, Total 1.2 mg/dL (0.2-1.2); Calc. Creatinine Clearance 0 mL/min (70-130); Calcium 9.1 mg/dL (7.8-10.44); Carbon Dioxide 21 mmol/L (23-31); Chloride 102 mmol/L (98-107); Estimated GFR 85; Globulin 4.5 g/dL (2.4-3.5); Glucose 187 mg/dL (83-110); Potassium 3.8 mmol/L (3.5-5.1); Protein, Total 6.8 g/dL (5.8-8.1); Sodium 138 mmol/L (136-145)
[2024-04-10 00:28] LABS: Bacteria/HPF None Seen HPF (None Seen); Bilirubin Negative (Negative); Blood, Urine Negative (Negative); CAUTI Indications for Culture Pelvic or flank pain; Clarity Clear (Clear); Glucose, Urine (Dipstick) Normal (Negative); Ketone, Urine Negative (Negative); Leukocyte Negative Leu/uL (Negative); Nitrite Negative (Negative); Protein, Urine (Dipstick) 100 mg/dL (Neg-Trace); Specific Gravity, Urine 1.016 (1.002-1.036); Squamous Epithelial None Seen HPF (0-3); Urobilinogen Normal mg/dL (Less than 2); WBC/HPF 0-3 HPF (0-3); pH, Urine 7.5 (5.0-9.0)
[2024-04-10 00:29] LABS: Urine Culture Reflex No No
[2024-04-10] MEDS ORDERED: fentaNYL 50 mcg/mL 1 mL Vial ONE ×5 (01:15→09:07)
[2024-04-10 03:02] LABS: Lactic Acid 5.35 mmol/L (0.5-2.2)
[2024-04-10 04:48] LABS: Hematocrit 36.1 % (42.0-52.0); Hemoglobin 11.1 g/dL (14.0-18.0); Mean Corpuscular HGB CONC 30.7 g/dL (32.0-36.0); Mean Corpuscular Hemoglobin 28.2 pg (27.0-31.0); Mean Corpuscular Volume 91.9 fL (78.0-98.0); Platelet Count 343 10x3/uL (130-400); RBC Distribution Width 22.2 % (11.5-14.5); Red Blood Cell (RBC) Count 3.93 mill/uL (4.70-6.10)
[2024-04-10] MEDS ORDERED: HUM PROTHROMBIN CPLX(PCC)4FACT 2,000 UNITS in Admixture Fee 1 EACH IV SCH (05:00)
[2024-04-10] MEDS ORDERED: NOREPINEPHRINE 8 MG/250 ML-D5W 250 ML ONE (05:02)
[2024-04-10 05:04] LABS: INR-International Normal Ratio 2.3; PTT 39.1 sec (22.9-36.1); Prothrombin Time 25.7 sec (12.0-14.7)
[2024-04-10 05:22] LABS: Anisocytosis SLIGHT = 6-15 cells HPF (0-5); Band 29 % (5-11); Hypochromia SLIGHT = 6-15 cells HPF (0-5); Lymphocytes 2 % (21-51); Monocytes 1 % (0-10); Neutrophil 68 % (42-75); Platelet Adequacy Comment Platelets Normal; Polychromasia SLIGHT = 2-3 cells HPF (0-2)
[2024-04-10] MEDS ORDERED: metroNIDAZOLE 500 MG (100 mL) BAG ONE (05:27)
[2024-04-10] MEDS ORDERED: KETAMINE 100 MG/ML (5ML VIAL) ONE (05:28)
[2024-04-10] MEDS ORDERED: Rocuronium Bromide 10 MG/ML (10ML VIAL) ONE (05:29)
[2024-04-10] MEDS ORDERED: Ondansetron PF 4 MG/2 ML Vial ONE (05:30)
[2024-04-10] MEDS ORDERED: Sodium Chloride 0.9% 100 ML ONE (05:50)
[2024-04-10] MEDS ORDERED: Cefepime 2 GM VIAL ONE (05:50)
[2024-04-10] MEDS ORDERED: Ondansetron PF 4 MG/2 ML Vial IVP PRN ×2 (07:50→11:00)
[2024-04-10] MEDS ORDERED: Lorazepam 2 MG/ML VIAL SLOW IVP PRN ×2 (07:50→11:03)
[2024-04-10] MEDS ORDERED: Acetaminophen 650 MG Suppository PR PRN ×2 (07:50→11:00)
[2024-04-10] MEDS ORDERED: fentaNYL 50 mcg/mL 1 mL Vial SLOW IVP PRN (07:54)
[2024-04-10] MEDS: fentaNYL 50 mcg/mL 1 mL Vial SLOW IVP PRN (08:37)
[2024-04-10] MEDS ORDERED: Scopolamine 1 mg/72 hour Patch TOP PRN (11:00)
[2024-04-10] MEDS ORDERED: Morphine 4 MG/ML VIAL SLOW IVP PRN (11:06)
[2024-04-10] MEDS ORDERED: Bisacodyl 10 MG SUPP PR PRN (11:09)
[2024-04-10 11:49] VITALS: TEMP 97.9
[2024-04-10] MEDS ORDERED: Lorazepam 2 MG/ML VIAL SLOW IVP SCH (12:00)
[2024-04-10] MEDS ORDERED: Morphine 4 MG/ML VIAL SLOW IVP SCH (14:00)
== END 2024-04-10 12:15 | disposition expired | DRG 393 ==
LOC: ERS 21:54 → ERHOLD 04-10 05:36 → SURG A 04-10 09:41
PROVIDERS: ADMIT Surgery; ATTEND Surgery
DX: K66.1 Hemoperitoneum (principal); I21.A1 Myocardial infarction type 2; J18.9 Pneumonia, unspecified organism; K82.2 Perforation of gallbladder; I10 Essential (primary) hypertension; I48.91 Unspecified atrial fibrillation; Z66 Do not resuscitate; E78.5 Hyperlipidemia, unspecified; G89.29 Other chronic pain; M54.9 Dorsalgia, unspecified; N40.0 Benign prostatic hyperplasia without lower urinary tract symptoms; Z51.5 Encounter for palliative care; Z88.1 Allergy status to other antibiotic agents; Z88.5 Allergy status to narcotic agent; Z88.2 Allergy status to sulfonamides; Z88.0 Allergy status to penicillin; Z79.01 Long term (current) use of anticoagulants; Z86.73 Personal history of transient ischemic attack (TIA), and cerebral infarction without residual deficits
CPT/HCPCS: 36415; 36430; 71045; 71260; 74177; 80053; 81001; 82805; 83605; 83880; 85025; 85610; 85730; 86850; 86900; 86901; 87040; 87077; 87086; 93005; 94760; J0692; J2405; J3010; J3370; J7168; P9016